=== PATIENT | male | born 1940 | race Caucasian/White ===

== ENCOUNTER 2018-02-16 18:51 | Emergency (ER) | payer MEDICARE, BC ==
--- NOTE | 2018-02-16 20:00 | CT ---
CT OF BRAIN WITHOUT CONTRAST: 02/16/18 COMPARISON: 07/28/12 HISTORY: High blood pressure and right temporal headache. TECHNIQUE: Multiple contiguous axial images were obtained in a CT of the brain without contrast. FINDINGS: There are few scattered hypodensities in the subcortical and periventricular white matter, likely sec ondary to small vessel ischemic disease. There is no evidence of hydrocephalus, intracranial hemorrha ge, or extra-axial fluid collection. The calvarium and overlying soft tissues are unremarkable. The visualized paranasal sinuses and masto id air cells are well aerated. IMPRESSION: No evidence of acute intracranial abnormality. POS: [facility]
[2018-02-16 20:02] LABS: #Basophils 0.1 thou/uL (0.0-0.2); #Eosinphils 0.4 thou/uL (0.0-0.7); #Lymphocytes 2.2 thou/uL (1.20-3.40); #Monocytes 0.7 thou/uL (0.11-0.59); %Basophils 1.1 % (0.0-1.0); %Eosinophils 4.6 % (0.0-10.0); %Lymphocytes 26.2 % (21.0-51.0); %Monocytes 8.5 % (0.0-10.0); %Neutrophils 59.6 % (42.0-75.0); Hemoglobin 13.5 g/dL (14.0-18.0); INR-International Normal Ratio 1.1; Mean Corpuscular HGB CONC 33.6 g/dL (32.0-36.0); Mean Corpuscular Hemoglobin 27.5 pg (27.0-31.0); Mean Platelet Volume 10.8 fL (7.4-10.4); PTT 38.5 SEC (22.9-36.1); Platelet Count 179 thou/uL (130-400); Prothrombin Time 13.8 SEC (12.0-14.7); RBC Distribution Width 13.1 % (11.5-14.5); Red Blood Cell (RBC) Count 4.91 mill/uL (4.70-6.10); White Blood Cell (WBC) Count 8.3 thou/uL (4.8-10.8)
[2018-02-16 20:07] LABS: ALT (SGPT) 9 U/L (8-55); AST (SGOT) 20 U/L (5-34); Alkaline Phosphatase 105 U/L (40-150); Anion Gap 16 mmol/L (10-20); BUN (Urea Nitrogen) 27 mg/dL (8.4-25.7); Bilirubin, Total 0.4 mg/dL (0.2-1.2); Calc. Creatinine Clearance 0 mL/min (70-130); Carbon Dioxide 19 mmol/L (23-31); Chloride 106 mmol/L (98-107); Estimated GFR-MDRD 42; Glucose 99 mg/dL (83-110); Potassium 4.4 mmol/L (3.5-5.1); Sodium 137 mmol/L (136-145)
[2018-02-16 20:11] LABS: Bilirubin Negative (Negative); Blood, Urine Trace (Negative); Clarity Clear (Clear); Glucose, Urine (Dipstick) Negative (Negative); Leukocyte Negative (Negative); Nitrite Negative (Negative); Protein, Urine (Dipstick) Negative (Neg-Trace); Urobilinogen 0.2 mg/dL (0.2-1.0); pH, Urine 5.5 (5.0-9.0)
[2018-02-16 20:12] LABS: Specific Gravity, Urine 1.008 (1.002-1.036)
[2018-02-16 20:18] LABS: Bacteria/HPF Rare-Few HPF (None Seen); RBC/HPF 0-3 HPF (0-3); Squamous Epithelial None Seen HPF (0-3); WBC/HPF None Seen HPF (0-3)
== END 2018-02-16 21:14 | disposition home or self-care (01) ==
LOC: SCSER 18:51
DX: R51 Headache (principal); I10 Essential (primary) hypertension; F41.9 Anxiety disorder, unspecified; F32.9 Major depressive disorder, single episode, unspecified; Z86.718 Personal history of other venous thrombosis and embolism; Z79.899 Other long term (current) drug therapy
CPT/HCPCS: 70450; 80053; 81003; 81015; 84443; 85025; 85610; 85730; 93005

== ENCOUNTER 2018-11-20 18:15 | Emergency (ER) | payer MEDICARE, BC | END 2018-11-20 19:14 | disposition home or self-care (01) | LOC: SCSER 18:15 | DX: S40.812A Abrasion of left upper arm, initial encounter (principal); L29.9 Pruritus, unspecified; I10 Essential (primary) hypertension; F41.9 Anxiety disorder, unspecified; F32.9 Major depressive disorder, single episode, unspecified; Z79.891 Long term (current) use of opiate analgesic; Z79.899 Other long term (current) drug therapy; Z86.718 Personal history of other venous thrombosis and embolism; W22.02XA Walked into lamppost, initial encounter | CPT/HCPCS: 99283 ==

== ENCOUNTER 2018-12-01 21:53 | Observation (INO) | payer MEDICARE, BC ==
[2018-12-01] MEDS ORDERED: Ondansetron PF 4 MG/2 ML Vial ONE (22:18)
[2018-12-01 22:35] LABS: ALT (SGPT) 15 U/L (8-55); AST (SGOT) 14 U/L (5-34); Albumin 4.2 g/dL (3.4-4.8); Alkaline Phosphatase 109 U/L (40-150); Anion Gap 13 mmol/L (10-20); BUN (Urea Nitrogen) 25 mg/dL (8.4-25.7); Bilirubin, Total 0.3 mg/dL (0.2-1.2); Calc. Creatinine Clearance 0 mL/min (70-130); Calcium 9.1 mg/dL (7.8-10.44); Carbon Dioxide 27 mmol/L (23-31); Chloride 106 mmol/L (98-107); Estimated GFR-MDRD 38; Glucose 111 mg/dL (83-110); Lipase 35 U/L (8-78); Potassium 3.7 mmol/L (3.5-5.1); Protein, Total 8.2 g/dL (5.8-8.1); Sodium 142 mmol/L (136-145)
--- NOTE | 2018-12-01 22:45 | CT ---
CT ABDOMEN AND PELVIS WITHOUT CONTRAST 12/01/18 PROVIDED CLINICAL HISTORY: Abdominal pain FINDINGS: Comparison is made with a study dated 06/16/15. The visualized lung bases are free of significant opacity. The solid abdominal organs are suboptimally evaluated in the absence of IV contrast material but demo nstrate an unremarkable unenhanced CT appearance. Gallstones are seen within a nondilated gallbladder. There are several loops of mildly ectatic fluid filled small bowel within the central mid abdomen ant eriorly, nonspecific. There are no findings specific for bowel obstructive. Vascular calcification is noted involving the abdominal aorta and its branches. The appendix appears normal. Small fat containing inguinal hernias are seen. The osseous structures demonstrate no concerning osteoblastic or osteolytic lesion. IMPRESSION: No definite evidence for an acute process. POS: [facility]
[2018-12-01] MEDS ORDERED: Fentanyl 100 MCG/2 ML VIAL ONE (22:58)
[2018-12-01 23:05] LABS: #Basophils 0.1 thou/uL (0.0-0.2); #Eosinphils 0.3 thou/uL (0.0-0.7); #Lymphocytes 1.9 thou/uL (1.20-3.40); #Monocytes 0.6 thou/uL (0.11-0.59); #Neutrophils 3.8 thou/uL (1.40-6.50); %Basophils 0.9 % (0.0-1.0); %Lymphocytes 28.6 % (21.0-51.0); %Monocytes 9.2 % (0.0-10.0); %Neutrophils 57.3 % (42.0-75.0); Mean Corpuscular HGB CONC 33.6 g/dL (32.0-36.0); Mean Corpuscular Hemoglobin 29.4 pg (27.0-31.0); Mean Corpuscular Volume 87.4 fL (78.0-98.0); Platelet Count 152 thou/uL (130-400); RBC Distribution Width 13.1 % (11.5-14.5); Red Blood Cell (RBC) Count 4.78 mill/uL (4.70-6.10); White Blood Cell (WBC) Count 6.7 thou/uL (4.8-10.8)
--- NOTE | 2018-12-01 23:56 | ULT ---
RIGHT UPPER QUADRANT ULTRASOUND: 12/01/18 PROVIDED CLINICAL HISTORY: Abdominal pain. FINDINGS: The pancreas is obscured by overlying bowel content. The liver demonstrates no mass or intrahepatic b iliary ductal dilatation. Shadowing emanating from the gallbladder fossa is compatible with gallstone s seen on recent CT examination. Gallbladder wall thickness is approximately 4 mm. No pericholecystic fluid is evident. The quality assistant describes a positive sonographic Dorsey's sign. Common duct is not dilated. Right kidney demonstrates no hydronephrosis or mass. IMPRESSION: Cholelithiasis with gallbladder wall thickening and reported sonographic Dorsey's sign. Correlate wit h concerns for acute cholecystitis. POS: [facility]
[2018-12-02] MEDS ORDERED: Fentanyl 100 MCG/2 ML VIAL ONE ×5 (00:09→09:24)
[2018-12-02] MEDS ORDERED: Levofloxacin 500 mg/D5W 100 ml Premix Bag ONE (00:52)
[2018-12-02] MEDS ORDERED: Ondansetron PF 4 MG/2 ML Vial ONE ×2 (02:34→14:36)
[2018-12-02] MEDS ORDERED: Promethazine HCl 25 MG/ML VIAL ONE (04:12)
[2018-12-02] MEDS ORDERED: Scopolamine 1.5 mg/72 hour Patch ONE (08:14)
[2018-12-02] MEDS ORDERED: Ketorolac Tromethamine 30 MG/ML VIAL ONE (08:14)
[2018-12-02] MEDS ORDERED: Albumin 5% 500 ML ONE (09:24)
--- NOTE | 2018-12-02 09:32 | HP ---
HISTORY OF PRESENT ILLNESS: Gabo Floyd has had epigastric right upper quadrant pain symptoms for several weeks, on this occasion it became so severe, presented to the emergency room. He had abdominal and pelvic CT scan that was essentially unremarkable. This was done without contrast due to his chronic kidney disease for which Dr. Herring follows him for. He did have gallstones. He did undergo an ultrasound of the abdomen revealing sonographic positive Dorsey sign, gallstones, normal bile duct caliber 4 mm. He had liver function tests that were normal. Lipase was normal. Hemoglobin 14 and white count 6.7. ALLERGIES: NONE, ALTHOUGH, MORPHINE CAUSES ADVERSE AFFECT, BUT HE IS NOT ALLERGIC TO IT. SOCIAL HISTORY: Tobacco, none. Alcohol, rarely socially. MEDICATIONS: 1. Sertraline 25 mg at bedtime. 2. Hydrocodone p.r.n. 3. Carvedilol 12.5 mg p.o. b.i.d. The patient in 2008 had colonoscopy and 2 days later, found to have a perforation undergoing colon resection repair and colostomy and subsequently a colostomy reversal. He, on 06/16/2015, had a laparoscopic adhesiolysis, laparoscopic reduction of incarcerated incisional hernia, left lower quadrant, laparoscopic mesh repair, Ventralight 6 x 8 inches (15 x 20 cm), obliquely oriented to cover the left lower quadrant defect at the old colostomy site. He had some upper midline incisional hernias, multiple small for which the mesh also used to cover these. The patient had a problem with his left leg and infection requiring debridement open wound and I performed skin graft in 2007. Dr. Jones performed a colonoscopy May 30, 2012 and December 16, 2011. The patient had a right groin mass. Dr. Chapman excised with a complex wound closure on July 11, 2009. The patient underwent colostomy reversal by Dr. Chapman. After February 24, 2009, sigmoid colon perforation with fecal peritonitis, abdominal washout, laparotomy, sigmoid colectomy with end colostomy. On October 10, 2008, debridement of left leg wound with skin graft after serial debridements previously. Kidney biopsy in August 2008. Temporary dialysis in the past. PAST MEDICAL HISTORY: 1. Chronic kidney disease followed by Dr. Herring. 2. Minimal disease, focal glomerulosclerosis, on steroids followed by Dr. Herring. 3. Hypertension. 4. History of prostate cancer, radiation therapy. 5. 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 6. Type 2 diabetes mellitus. 7. Chronic steroid dependency. 8. History of upper extremity DVT. 9. History of right PICC line. PHYSICAL EXAMINATION: VITAL SIGNS: Weight 81 kg, blood pressure 180/90, heart rate 83, respiratory rate 22, and temperature 97.9 degrees. HEAD, EARS, EYES, NOSE, AND THROAT: Unremarkable. LUNGS: Clear to auscultation. CARDIAC: Regular rate and rhythm without murmur or gallop. ABDOMEN: Soft and tenderness in right upper quadrant and epigastrium with guarding. Positive Dorsey sign. EXTREMITIES: Unremarkable. Chronic venous stasis changes. SKIN: Without jaundice. Sclerae without icterus. LABORATORY DATA: White count 6.7, hemoglobin 14. Sodium 142, BUN 25, creatinine 1.75, and GFR 38. Liver function tests normal. Lipase normal. ASSESSMENT AND PLAN: 1. Acute cholecystitis with cholelithiasis. Recommend laparoscopic video cholecystectomy. Risks of infection, bleeding, visceral and biliary injury, open procedure discussed. Questions answered. He consents. 2. Chronic kidney disease. This is a stable kidney function as noted above. Continue hydration and observe. 3. History of glomerulosclerosis. He has been on steroids in the past, currently not. 4. History of incisional hernia repair, laparoscopic with mesh. Job ID: [id number]
[2018-12-02] MEDS ORDERED: Bupivacaine HCl 0.5%/Epinephrine 1:200,000/PF 30 ml Vial ONE (09:47)
[2018-12-02] MEDS ORDERED: SUGAMMADEX SODIUM 200 MG/2 ML VIAL ONE (10:54)
--- NOTE | 2018-12-02 14:24 | OP ---
DATE OF PROCEDURE: 12/02/2018 PREOPERATIVE DIAGNOSES: Acute cholecystitis, cholelithiasis, chronic cholecystitis, and cholelithiasis. POSTOPERATIVE DIAGNOSES: Acute cholecystitis, cholelithiasis, chronic cholecystitis, cholelithiasis, and adhesions from prior surgery. PROCEDURE PERFORMED: Laparoscopic video cholecystectomy. ANESTHESIA: General, local 0.5% Marcaine with epinephrine 30 mL. FINDINGS: Periumbilical adhesions from prior operations, lower abdominal incision made in the right lower quadrant for the 5 port with laparoscope. DESCRIPTION OF PROCEDURE: The patient was taken to the operating room, where under general anesthesia, abdomen was clipped of hair, prepared with ChloraPrep, and draped in routine fashion. Local anesthetic was infiltrated into the skin and subcutaneous tissue about the operative sites. Right midclavicular and subcostal incision made. Pneumoperitoneum to 15 mmHg obtained with a Veress needle, replaced with a 5 port, and the laparoscope inserted. The adhesions from prior operation, periumbilical with small bowel and omentum adherent to the periumbilical area and adhesion free area in the right lower quadrant. Skin and subcutaneous tissues were localized with local anesthetic. Incision made and 5 port placed with the laparoscope moved to this port. Right subxiphoid incision was made and 11 port placed. Right lateral subcostal incision made and 5 port placed. Liver appeared to be normal. Gallbladder and fundus grasped at the cephalad, infundibulum grasped at the lateral cystic artery and dissected free. Critical view obtained. Clips doubly applied, cystic artery and duct, which were divided, and gallbladder dissected free from liver bed obtaining good hemostasis. Multiple stones and gallbladder removed, submitted to Pathology. Hemostasis assured with the cautery. Subxiphoid fascia approximated with 0 Vicryl UR needle. Irrigant and pneumoperitoneum evacuated. All instruments were removed, and all skin incisions were approximated with interrupted subdermal 4-0 Monocryl and Aten-glue applied. Job ID: [id number]
[2018-12-02] MEDS ORDERED: Rocuronium Bromide 10 MG/ML (10ML VIAL) ONE (14:36)
[2018-12-02] MEDS ORDERED: PROPOFOL 200 MG/20 ML VIAL ONE (14:36)
[2018-12-02] MEDS ORDERED: Lidocaine 1% PF 5 ML VIAL ONE (14:36)
[2018-12-02] MEDS ORDERED: Metoclopramide HCl 10 MG/2 ML VIAL ONE (14:36)
[2018-12-02] MEDS ORDERED: PHENYLEPHRINE-NS 100 MCG/ML 10 ML SYRINGE ONE (14:36)
[2018-12-02] MEDS ORDERED: Succinylcholine Chloride 20 MG/ML 10 ml SYRINGE FS ONE (14:36)
[2018-12-02] MEDS ORDERED: Glycopyrrolate 0.2 MG/ML 5 ML SYRINGE ONE ×2 (14:36)
[2018-12-02] MEDS ORDERED: Dexamethasone 20 MG/5 ML VIAL ONE (14:36)
== END 2018-12-02 13:55 | disposition home or self-care (01) ==
LOC: SCSER 21:53 → ERHOLD 12-02 01:00
PROVIDERS: ADMIT Specialist; ATTEND Specialist
PROC: 0FT44ZZ Resection of Gallbladder, Percutaneous Endoscopic Approach (ICD-10-PCS; principal; 2018-12-02)
DX: K80.12 Calculus of gallbladder with acute and chronic cholecystitis without obstruction (principal); I12.9 Hypertensive chronic kidney disease with stage 1 through stage 4 chronic kidney disease, or unspecified chronic kidney disease; E11.22 Type 2 diabetes mellitus with diabetic chronic kidney disease; N18.9 Chronic kidney disease, unspecified; Z85.46 Personal history of malignant neoplasm of prostate; Z79.899 Other long term (current) drug therapy; Z90.49 Acquired absence of other specified parts of digestive tract; Z98.890 Other specified postprocedural states
CPT/HCPCS: 47562; 74176; 76705; 80053; 83605; 83690; 84484; 85025; 88304; 93005; 96361; 96365; 96372; 96375; 96376; 99285; P9045; J0131; J0670; J1100; J1885; J1956; J2001; J2405; J2550; J2704; J2765; J3010

== ENCOUNTER 2019-04-10 20:31 | Emergency (ER) | payer MEDICARE, BC ==
[2019-04-10 21:12] LABS: #Basophils 0.1 thou/uL (0.0-0.2); #Eosinphils 0.4 thou/uL (0.0-0.7); #Lymphocytes 1.9 thou/uL (1.20-3.40); #Monocytes 0.7 thou/uL (0.11-0.59); #Neutrophils 3.1 thou/uL (1.40-6.50); %Basophils 1.1 % (0.0-1.0); %Eosinophils 6.2 % (0.0-10.0); %Lymphocytes 30.8 % (21.0-51.0); %Monocytes 10.8 % (0.0-10.0); %Neutrophils 51.1 % (42.0-75.0); Hemoglobin 11.8 g/dL (14.0-18.0); Mean Corpuscular HGB CONC 34.3 g/dL (32.0-36.0); Mean Corpuscular Hemoglobin 28.7 pg (27.0-31.0); Mean Corpuscular Volume 83.7 fL (78.0-98.0); Mean Platelet Volume 7.6 fL (7.4-10.4); Platelet Count 177 thou/uL (130-400); RBC Distribution Width 12.7 % (11.5-14.5)
[2019-04-10 21:25] LABS: ALT (SGPT) 11 U/L (8-55); AST (SGOT) 13 U/L (5-34); Alkaline Phosphatase 99 U/L (40-150); Anion Gap 14 mmol/L (10-20); BUN (Urea Nitrogen) 29 mg/dL (8.4-25.7); Bilirubin, Total 0.4 mg/dL (0.2-1.2); Calc. Creatinine Clearance 0 mL/min (70-130); Calcium 9.2 mg/dL (7.8-10.44); Carbon Dioxide 23 mmol/L (23-31); Chloride 107 mmol/L (98-107); Estimated GFR-MDRD 32; Globulin 3.5 g/dL (2.4-3.5); Glucose 112 mg/dL (83-110); Potassium 4.1 mmol/L (3.5-5.1); Protein, Total 7.5 g/dL (5.8-8.1); Sodium 140 mmol/L (136-145)
--- NOTE | 2019-04-10 21:47 | RAD ---
EXAM: Two views chest PROVIDED CLINICAL HISTORY: Chest pain. COMPARISON: 06/16/2015 FINDINGS: Cardiac silhouette and pulmonary vasculature are within normal limits. The lungs are clear. The osse ous structures have a normal appearance. Vascular calcifications are seen in the thoracic aorta. Nasogastric tube is no longer visualized, and there is been improved aeration at the left lung base. No other interval change. IMPRESSION: No acute cardiopulmonary process.
--- NOTE | 2019-04-10 23:00 | ULT ---
EXAM: Right lower extremity venous Doppler HISTORY: Right lower extremity swelling, redness, and pain. FINDINGS: Grayscale, color-flow, Doppler evaluation, spectral analysis of the right lower extremity venous stru ctures is performed with 2-D imaging. The right common femoral, superficial femoral, popliteal, posterior tibial, proximal greater saphenous and profunda femoral veins are imaged. There is normal luminal compressibility, flow, and augmentation the visualized deep venous structures of the right lower extremity. IMPRESSION: No evidence of a deep vein thrombosis in the visualized deep venous structures right lower extremity.
== END 2019-04-10 22:38 | disposition home or self-care (01) ==
LOC: SCSER 20:31
DX: M79.89 Other specified soft tissue disorders (principal); I10 Essential (primary) hypertension; F41.9 Anxiety disorder, unspecified; F32.9 Major depressive disorder, single episode, unspecified; Z86.718 Personal history of other venous thrombosis and embolism; Z79.899 Other long term (current) drug therapy
CPT/HCPCS: 36415; 71046; 80053; 83880; 84484; 85025; 93005

== ENCOUNTER 2019-09-20 23:46 | Emergency (ER) | payer MEDICARE, BC ==
[2019-09-21] MEDS ORDERED: Ondansetron PF 4 MG/2 ML Vial ONE (00:22)
[2019-09-21 00:25] LABS: #Basophils 0.1 thou/uL (0.0-0.2); #Eosinphils 0.4 thou/uL (0.0-0.7); #Lymphocytes 2.1 thou/uL (1.20-3.40); #Monocytes 0.7 thou/uL (0.11-0.59); #Neutrophils 6.1 thou/uL (1.40-6.50); %Basophils 0.6 % (0.0-1.0); %Eosinophils 4.1 % (0.0-10.0); %Lymphocytes 22.5 % (21.0-51.0); %Monocytes 7.2 % (0.0-10.0); %Neutrophils 65.5 % (42.0-75.0); Hemoglobin 13.8 g/dL (14.0-18.0); Mean Corpuscular HGB CONC 33.3 g/dL (32.0-36.0); Mean Corpuscular Hemoglobin 27.4 pg (27.0-31.0); Mean Corpuscular Volume 82.3 fL (78.0-98.0); Mean Platelet Volume 9.3 fL (7.4-10.4); Platelet Count 168 thou/uL (130-400); RBC Distribution Width 13.3 % (11.5-14.5); Red Blood Cell (RBC) Count 5.03 mill/uL (4.70-6.10); White Blood Cell (WBC) Count 9.3 thou/uL (4.8-10.8)
[2019-09-21] MEDS ORDERED: Fentanyl 100 MCG/2 ML VIAL ONE ×3 (00:29→04:07)
[2019-09-21 00:39] LABS: ALT (SGPT) 14 U/L (8-55); AST (SGOT) 16 U/L (5-34); Albumin 4.2 g/dL (3.4-4.8); Alkaline Phosphatase 99 U/L (40-110); Anion Gap 15 mmol/L (10-20); BUN (Urea Nitrogen) 27 mg/dL (8.4-25.7); Bilirubin, Total 0.4 mg/dL (0.2-1.2); CK (CPK) 56 U/L (30-200); Calc. Creatinine Clearance 0 mL/min (70-130); Calcium 9.4 mg/dL (7.8-10.44); Carbon Dioxide 25 mmol/L (23-31); Chloride 106 mmol/L (98-107); Estimated GFR-MDRD 42; Globulin 3.7 g/dL (2.4-3.5); Glucose 107 mg/dL (83-110); Lipase 21 U/L (8-78); Potassium 3.6 mmol/L (3.5-5.1); Protein, Total 7.9 g/dL (5.8-8.1); Sodium 142 mmol/L (136-145)
[2019-09-21 02:38] LABS: Bilirubin Negative (Negative); Blood, Urine Small (Negative); Clarity Clear (Clear); Glucose, Urine (Dipstick) Negative (Negative); Leukocyte Negative (Negative); Nitrite Negative (Negative); Protein, Urine (Dipstick) 100 mg/dL (Neg-Trace); Urobilinogen 0.2 mg/dL (Less than 2)
[2019-09-21 02:42] LABS: Bacteria/HPF None Seen HPF (None Seen); RBC/HPF 0-3 HPF (0-3); Squamous Epithelial 0-3 HPF (0-3); WBC/HPF 0-3 HPF (0-3)
--- NOTE | 2019-09-21 08:01 | CT ---
PRELIMINARY REPORT/[facility]/EMERGENCY AFTER HOURS PROCEDURE PROCEDURE INFORMATION: Exam: CT Abdomen And Pelvis With Contrast Exam date and time: 09/21/2019 2:22 AM Clinical history: 79 years old, male; Patient HX: Patient presents for evaluation of abdominal pain. Historian history provided by patient, reports mid abdominal pain onset around 5p today. 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 No n/v. Pain is intermittent, comes in waves. HX of prior ruptured bowel with repair. TECHNIQUE: Imaging protocol: Computed tomography of the abdomen and pelvis with intravenous contrast. COMPARISON: No relevant prior studies available. FINDINGS: Liver: Normal. Gallbladder and bile ducts: Gallbladder is surgically absent. Pancreas: Normal. Spleen: Normal. Adrenals: Normal. Kidneys and ureters: Simple right renal cysts. Stomach and bowel: Scattered colonic diverticulosis. Small amount of fluid and fat stranding adjacent to nondilated small bowel within the anterior abdomen. No bowel wall thickening. Appendix: No evidence of appendicitis. Intraperitoneal space: Unremarkable. No free air. No significant fluid collection. Vasculature: Phleboliths in the pelvis. Atherosclerotic disease of the abdominal aorta and iliac arteries. Lymph nodes: Unremarkable. No enlarged lymph nodes. Bladder: Unremarkable as visualized. Reproductive: Unremarkable as visualized. Bones/joints: Multilevel thoracolumbar spine degenerative changes. Bilateral L5 pars defects. Soft tissues: Small bilateral fat-containing inguinal hernias. IMPRESSION: Small amount of fluid and fat stranding adjacent to nondilated small bowel within the anterior abdomen. No bowel wall thickening. Findings are nonspecific, but could represent localized venous congestion or sequelae of prior infection/inflammation. Thank you for allowing us to participate in the care of your patient. Dictated and Authenticated by: Ren Whitehead MD 09/21/2019 3:53 AM Central Time ([place] & [place]) FINAL REPORT EXAM: CT ABDOMEN AND PELVIS HISTORY: Abdominal pain. COMPARISON: 06/16/2015 Procedure: Multiple contiguous axial images were obtained and a CT of the abdomen and pelvis with IV contrast. C oronal reformats were performed. FINDINGS: Lower Chest: Patchy interstitial and alveolar opacities in lung bases. Vessels: Atherosclerosis of the a normal caliber aorta. Heart: Upper normal heart size. No significant pericardial fluid Abdomen: Portal vein:Patent Gallbladder: Surgically absent Liver: within normal limits. Pancreas: within normal limits. Spleen: within normal limits. Adrenals: within normal limits. Kidneys: Symmetric enhancement. No obstructive uropathy. Peritoneum: No ascites or free air. There is a small amount of free fluid in the anterior right abdom inal mesentery. Small amount of anterior abdominal mesenteric fat stranding. Bowel: Limited evaluation due to the lack of oral contrast administration. No evidence of bowel obstr uction. Ileocecal junction is unremarkable. Normal caliber appendix. Scattered fecal material in a nondistended, nondilated colon. Anastomotic suture chain in the sigmoid colon is noted. Mesentery and Retroperitoneum: No enlarged mesenteric or retroperitoneal lymph nodes. Abdominal Wall: within normal limits. Pelvis: Reproductive Organs: Reproductive organs are unremarkable. Pelvis: No mass, lymphadenopathy, free air or free fluid. Bladder: Mild urinary bladder mucosal prominence may be due to inadequate distention. Bones: within normal limits. IMPRESSION: Small amount of fluid and stranding the anterior abdominal mesentery. This report is in agreement with the preliminary report by [facility]. Transcribed Date/Time: 09/21/2019 8:05 AM
== END 2019-09-21 04:00 | disposition home or self-care (01) ==
LOC: SCSER 23:46
DX: R10.9 Unspecified abdominal pain (principal); F41.9 Anxiety disorder, unspecified; F32.9 Major depressive disorder, single episode, unspecified; I10 Essential (primary) hypertension; Z86.718 Personal history of other venous thrombosis and embolism; Z79.899 Other long term (current) drug therapy
CPT/HCPCS: 74177; 80053; 81003; 81015; 82550; 83605; 83690; 84484; 85025; 93005; 96361; 96374; 96375; 96376; J2405; J3010

== ENCOUNTER 2020-08-28 11:15 | Inpatient (IN) | payer MEDICARE, BC ==
[2020-08-28 14:14] LABS: Hemoglobin 10.9 g/dL (14.0-18.0); Mean Corpuscular HGB CONC 32.7 g/dL (32.0-36.0); Mean Corpuscular Hemoglobin 28.9 pg (27.0-31.0); Mean Corpuscular Volume 88.2 fL (78.0-98.0); Mean Platelet Volume 10.8 fL (7.4-10.4); Platelet Count 121 thou/uL (130-400); RBC Distribution Width 12.8 % (11.5-14.5); Red Blood Cell (RBC) Count 3.76 mill/uL (4.70-6.10); White Blood Cell (WBC) Count 5.2 thou/uL (4.8-10.8)
[2020-08-28 15:02] LABS: Anion Gap 14 mmol/L (10-20); BUN (Urea Nitrogen) 33 mg/dL (8.4-25.7); Calc. Creatinine Clearance 0 mL/min (70-130); Calcium 8.5 mg/dL (7.8-10.44); Carbon Dioxide 22 mmol/L (23-31); Chloride 107 mmol/L (98-107); Estimated GFR-MDRD 27; Glucose 90 mg/dL (83-110); Potassium 4.4 mmol/L (3.5-5.1); Sodium 139 mmol/L (136-145)
[2020-08-29 11:54] LABS: SARS-CoV-2 MS2 Positive; SARS-CoV-2 N Gene Negative; SARS-CoV-2 S Gene Negative; SARS-CoV-2 by NAA Not Detected (NotDetected); SARS-CoV-2 orf1ab Negative
[2020-08-31] MEDS ORDERED: Albumin 5% 0 ML ONE (06:32)
[2020-08-31] MEDS ORDERED: Heparin 10,000 UNITS/1 ML VIAL 30,000 UNITS in Sodium Chloride 0.9% 1,000 ML FS SCH (06:45)
[2020-08-31] MEDS ORDERED: Fentanyl 100 MCG/2 ML VIAL ONE (07:05)
[2020-08-31] MEDS ORDERED: Midazolam HCl 2 mg/2 ml Vial ONE (07:05)
[2020-08-31] MEDS ORDERED: Fentanyl 250 MCG/5 ML VIAL ONE (07:29)
[2020-08-31] MEDS ORDERED: ePHEDrine 50 MG/ML VIAL ONE (08:39)
[2020-08-31] MEDS ORDERED: Protamine Sulfate 50 MG/5 ML VIAL ONE (09:48)
[2020-08-31] MEDS ORDERED: SUGAMMADEX SODIUM 200 MG/2 ML VIAL ONE (10:01)
[2020-08-31] MEDS ORDERED: Protamine Sulfate 250 MG/25 ML VIAL ONE ×2 (10:03→10:46)
[2020-08-31] MEDS ORDERED: Heparin 30,000 units/30 ml VIAL ONE (10:46)
[2020-08-31] MEDS ORDERED: Labetalol HCl 100 MG/20 ML VIAL ONE (10:46)
[2020-08-31] MEDS ORDERED: Ondansetron PF 4 MG/2 ML Vial ONE (10:46)
[2020-08-31] MEDS ORDERED: Heparin 5,000 UNITS/ML VIAL ONE (10:46)
[2020-08-31] MEDS ORDERED: Glycopyrrolate 0.2 MG/ML 5 ML SYRINGE ONE (10:46)
[2020-08-31] MEDS ORDERED: EPHEDRINE 25 MG/5 ML SYRINGE ONE (10:46)
[2020-08-31] MEDS ORDERED: PROPOFOL 200 MG/20 ML VIAL ONE (10:46)
[2020-08-31] MEDS ORDERED: PHENYLEPHRINE-NS 100 MCG/ML 10 ML SYRINGE ONE (10:46)
[2020-08-31] MEDS ORDERED: Papaverine 60 MG/2 ML VIAL ONE (10:46)
[2020-08-31] MEDS ORDERED: Dexamethasone 20 MG/5 ML VIAL ONE (10:46)
[2020-08-31] MEDS ORDERED: Thrombin 5000 UNITS/5 ML VIAL ONE (10:46)
[2020-08-31] MEDS ORDERED: Atropine Sulfate 0.4 mg/1 ml Vial ONE (10:46)
[2020-08-31] MEDS ORDERED: Aminocaproic Acid 5 GM/20 ML VIAL ONE (10:46)
[2020-08-31] MEDS ORDERED: Rocuronium Bromide 10 MG/ML (10ML VIAL) ONE (10:46)
[2020-08-31] MEDS ORDERED: Calcium Chloride 1 GM/10 ML Abboject SYRINGE ONE (10:46)
[2020-08-31] MEDS ORDERED: niCARdipine 25 MG/10 ML VIAL ONE (10:51)
--- NOTE | 2020-08-31 10:59 | OP ---
DATE OF PROCEDURE: 08/31/2020 PREOPERATIVE DIAGNOSIS: Coronary artery disease. PROCEDURE PERFORMED: Coronary artery bypass graft x2, off-pump, RICHARD good quality to a 2-mm LAD, saphenous vein good quality to a 1.5 to 2 mm diagonal. HAIR WORKER: Scott Delacruz MD TRANSFUSION: None. ESTIMATED BLOOD LOSS: 300. DESCRIPTION OF PROCEDURE: After adequate anesthesia had been obtained, then Dr. Delacruz did a saphenous vein harvest of the left greater saphenous vein while I performed a median sternotomy. Left internal mammary artery was harvested, entering the left pleura. After heparinization, the mammary was divided distally and passed posterior to the thymus gland and then pericardium was incised. Laparotomy pads placed behind the heart after 15,000 units of heparin and then the Octopus stabilizer was used on the LAD, proximal control with a [place]eb tape and the vessel was opened, and using the Wendy blower, the anastomosis was completed. Following completion of this, similar procedure was performed on the diagonal with a vein graft. Following this, the pressure was dropped to about 75 to 80, and a partial occluding clamp placed on the aorta, which was rather thick walled. Proximal anastomosis was then completed with a running 6-0 Prolene suture. Following completion of this, proximal and distal anastomoses were hemostatic. Mediastinal and left pleural drains were placed while protamine was given systemically. The sternum was then reapproximated with #7 interrupted wire using vancomycin paste on the sternal edges, platelet-rich blood, and platelet-poor plasma. Subcutaneous tissue and skin were closed in layers. Job ID: [id number]
[2020-08-31 12:07] LABS: Actual Bicarbonate (HCO3a) 18.4 mEq/L (22-28); Base Excess (BEa) -7.1 mEq/L (-2.0 to +3.0); CO2 Tension 36.7 mmHg (35.0-45.0); Calcium, Ionized (arterial) 1.02 mmol/L (1.12-1.30); Carboxyhemoglobin (COHb) 0.1 gm% (0.0-3.0); Hemoglobin (Hb) 8.9 g/dL (14.0-18.0); O2 Tension (PaO2), arterial 91.6 mmHg (> 70.0); Potassium - ABG Lab 3.89 mmol/L (3.70-5.30); pH, Arterial 7.32 (7.35-7.45)
[2020-08-31] MEDS ORDERED: Nitroglycerin 50 MG/250 ML BOT 250 ML ONE (12:14)
[2020-08-31] MEDS: Nitroglycerin 50 MG/250 ML BOT 250 ML IVPB PRN ×2 (12:15→20:24)
[2020-08-31] MEDS ORDERED: Acetaminophen 325 MG TAB PO PRN (12:18)
[2020-08-31] MEDS ORDERED: DOPamine 400 MG/D5W 250 ML 250 ML IVPB PRN (12:18)
[2020-08-31] MEDS ORDERED: Morphine 2 MG/ML VIAL SLOW IVP PRN ×2 (12:18→13:45)
[2020-08-31] MEDS ORDERED: Fentanyl 100 MCG/2 ML VIAL SLOW IVP PRN ×2 (12:18)
[2020-08-31] MEDS ORDERED: Bisacodyl 10 MG SUPP PR PRN (12:18)
[2020-08-31] MEDS ORDERED: Norepinephrine 8 MG/0.9% NS 250 ML IVPB PRN (12:18)
[2020-08-31] MEDS ORDERED: hydrALAZINE 20 MG/ML VIAL SLOW IVP PRN (12:18)
[2020-08-31] MEDS ORDERED: Guaifenesin DM 100-10/5 ML UDCUP PO PRN (12:18)
[2020-08-31] MEDS ORDERED: Ondansetron PF 4 MG/2 ML Vial IVP PRN (12:18)
[2020-08-31] MEDS ORDERED: Post-Op Insulin Drip Protocol IVPB ONE (12:18)
[2020-08-31] MEDS ORDERED: Bisacodyl 5 MG TAB PO PRN (12:18)
[2020-08-31] MEDS ORDERED: Promethazine HCl 25 MG/ML VIAL IM PRN (12:18)
[2020-08-31] MEDS ORDERED: Hetastarch 6% 500 ML 500 ML IVPB PRN (12:18)
[2020-08-31] MEDS ORDERED: niCARdipine 25 MG in Sodium Chloride 0.9% 250 ML 250 ML IVPB PRN (12:18)
[2020-08-31] MEDS ORDERED: Mag-Al 1200 mg/1200 mg/30 ML UDCUP PO PRN (12:18)
--- NOTE | 2020-08-31 12:28 | RAD ---
Exam: Chest one view HISTORY:Status post open heart surgery. Comparison: 07/24/2020. FINDINGS: Lines and tubes: There are sternotomy wires, endotracheal tube at the level of the ayse, mediastina l drainage catheter and right-sided subclavian vascular catheter. Cardiac silhouette: Normal. Interval sternotomy wires. Aorta: Unremarkable. Pulmonary vessels: Normal. Costophrenic angles: Clear. Lungs: Patchy opacities may represent atelectasis. Pneumothorax: None. Osseous abnormalities: None. IMPRESSION: 1. Findings compatible with recent open heart surgery. Endotracheal tube at the level of ayse. Find ings conveyed to patient's nurse to consider repositioning. 2. Patchy opacities in the lung parenchyma may represent atelectasis. Transcribed Date/Time: 08/31/2020 12:36 PM
[2020-08-31 12:29] LABS: #Eosinphils 0.3 thou/uL (0.0-0.7); #Monocytes 0.5 thou/uL (0.11-0.59); #Neutrophils 5.9 thou/uL (1.40-6.50); %Basophils 0.4 % (0.0-1.0); %Eosinophils 3.4 % (0.0-10.0); %Lymphocytes 13.5 % (21.0-51.0); %Neutrophils 76.8 % (42.0-75.0); Hemoglobin 8.6 g/dL (14.0-18.0); Mean Corpuscular HGB CONC 33.8 g/dL (32.0-36.0); Mean Corpuscular Hemoglobin 29.2 pg (27.0-31.0); Mean Corpuscular Volume 86.3 fL (78.0-98.0); Mean Platelet Volume 9.5 fL (7.4-10.4); Platelet Count 138 thou/uL (130-400); Red Blood Cell (RBC) Count 2.93 mill/uL (4.70-6.10); White Blood Cell (WBC) Count 7.6 thou/uL (4.8-10.8)
[2020-08-31 12:31] LABS: ALV-art Gradient 147.725 mmHg (0-20); Puncture Site ALINE
[2020-08-31 12:38] LABS: INR-International Normal Ratio 1.4; PTT 45.2 sec (22.9-36.1); Prothrombin Time 17.6 sec (12.0-14.7)
[2020-08-31] MEDS ORDERED: HUMULIN R 100 UNITS in Sodium Chloride 0.9% 100 ML IVPB SCH (12:45)
[2020-08-31] MEDS ORDERED: Dextrose 50% Abboject 50 ML SYRINGE SLOW IVP PRN (12:45)
[2020-08-31] MEDS ORDERED: Dextrose 5% in Water 1,000 ML IV PRN (12:45)
[2020-08-31] MEDS: Insulin Regular 300 UNITS/3 ML VIAL SC PRN ×2 (12:46→18:52)
[2020-08-31] MEDS: Sodium Chloride 0.9% 1,000 ML IV SCH (12:47)
[2020-08-31 13:07] LABS: Anion Gap 10 mmol/L (10-20); BUN (Urea Nitrogen) 30 mg/dL (8.4-25.7); Calc. Creatinine Clearance 36 mL/min (70-130); Calcium 7.1 mg/dL (7.8-10.44); Carbon Dioxide 20 mmol/L (23-31); Chloride 114 mmol/L (98-107); Estimated GFR-MDRD 35; Glucose 148 mg/dL (83-110); Sodium 140 mmol/L (136-145)
[2020-08-31] MEDS ORDERED: Propofol 1,000 MG/100 ML VIAL IV ONE (13:08)
[2020-08-31] MEDS ORDERED: Propofol 1,000 MG/100 ML VIAL IV PRN (13:45)
[2020-08-31] MEDS ORDERED: Propofol BOLUS 1,000 MG/100 ML VIAL IV PRN (13:45)
[2020-08-31] MEDS ORDERED: Lorazepam 2 MG/ML VIAL SLOW IVP PRN (13:45)
[2020-08-31] MEDS ORDERED: DISCONTINUE PREVIOUS NARCOTIC PAIN MEDICATIONS AND BENZODIAZEPINES FS SCH (13:45)
[2020-08-31] MEDS ORDERED: Fentanyl BOLUS 250 ML IVPB PRN (13:45)
[2020-08-31] MEDS ORDERED: fentaNYL Citrate/PF 2,000 MCG in Sodium Chloride 0.9% 60 ML IV SCH (13:45)
[2020-08-31] MEDS: CEFAZOLIN 2 GM in Premix Bag 1 BAG IVPB SCH (16:00)
[2020-08-31 17:27] LABS: Actual Bicarbonate (HCO3a) 17.3 mEq/L (22-28); Base Excess (BEa) -5.6 mEq/L (-2.0 to +3.0); Calcium, Ionized (arterial) 0.98 mmol/L (1.12-1.30); Carboxyhemoglobin (COHb) 0.3 gm% (0.0-3.0); Hemoglobin (Hb) 9.8 g/dL (14.0-18.0); O2 Tension (PaO2), arterial 82.1 mmHg (> 70.0); Potassium - ABG Lab 3.39 mmol/L (3.70-5.30); pH, Arterial 7.44 (7.35-7.45)
[2020-08-31 17:28] LABS: Puncture Site LINE
[2020-08-31] MEDS ORDERED: HYDROcodone/Acetaminophen 10/325 mg Tablet PO SCH (18:00)
[2020-08-31] MEDS ORDERED: HYDROcodone/Acetaminophen 10/325 mg Tablet ONE (18:04)
[2020-08-31 18:08] LABS: Hemoglobin 9.3 g/dL (14.0-18.0)
[2020-08-31 18:16] LABS: Glucose 164 mg/dL (83-110); Potassium 3.5 mmol/L (3.5-5.1)
[2020-08-31] MEDS: Potassium Chloride 20 MEQ/100 ML PREMIX BAG IVPB PRN (18:51)
[2020-08-31] MEDS: Rosuvastatin 20 MG TAB PO SCH (20:00)
[2020-08-31] MEDS: Famotidine/PF 20 mg/2ml Vial SLOW IVP SCH (20:00)
[2020-08-31] MEDS: cloNIDine 0.1 MG TAB PO PRN (20:00)
[2020-08-31] MEDS: traMADol HCl 50 MG TAB PO PRN (20:01)
[2020-08-31] MEDS: Labetalol HCl 100 MG/20 ML VIAL SLOW IVP PRN (22:00)
[2020-09-01] MEDS: Nitroglycerin 50 MG/250 ML BOT 250 ML IVPB PRN (00:03)
[2020-09-01] MEDS: CEFAZOLIN 2 GM in Premix Bag 1 BAG IVPB SCH ×2 (00:04→11:56)
[2020-09-01] MEDS: HYDROcodone/Acetaminophen 5/325 mg Tablet PO PRN ×3 (00:08→20:28)
[2020-09-01] MEDS: cloNIDine 0.1 MG TAB PO PRN ×2 (00:11→13:02)
--- NOTE | 2020-09-01 00:29 | CON ---
DATE OF CONSULTATION: INDICATION FOR CONSULTATION: 80-year-old patient, status post bypass surgery today. HISTORY OF PRESENT ILLNESS: This is a patient of Dr. Deisy Lin. They have apparently no intensive care unit to take care of the patients postoperatively and the patient was sent here where he underwent bypass surgery, and he is now in the intensive care unit and we were asked to see him a very unfortunate 80-year-old gentleman with coronary artery disease, who went bypass surgery today with off pump bypass with RICHARD to the left anterior descending artery, and also to saphenous vein graft to a diagonal branch. He is now extubated. He is doing quite well except he complains of abdominal pain, but otherwise seems to be doing quite well from a cardiac standpoint, and his blood pressure is slightly elevated, which may be due to the abdominal pain he at this time encountering but otherwise, he appears to be stable. He has no arrhythmias, and appears to be doing overall as well expected postoperatively. PAST MEDICAL HISTORY: Significant for coronary artery disease, bypass surgery today. He has peripheral vascular disease undergone angioplasty and stent placement to the lower extremities. He has history of hypertension, hyperlipidemia, history of chronic kidney disease. He has history of carotid artery stenosis. He has history of hypertension, dyslipidemia, prostate cancer. He has osteoarthritis. He had undergone a partial colectomy with reversal. He has had a cholecystectomy. FAMILY HISTORY: Noncontributory to the present illness. SOCIAL HISTORY: He does no alcohol or tobacco abuse. ALLERGIES: HE IS ALLERGIC TO MORPHINE, BUT IT IS NOT A TRUE ALLERGY. HE APPARENTLY JUST DOES NOT LIKE THE EFFECTS OF THE MORPHINE. MEDICATIONS: Prior to admission included: 1. Coreg. 2. Hydralazine. 3. Clonidine. 4. Rosuvastatin. 5. Plavix. 6. Levofloxacin. 7. Isosorbide dinitrate. 8. Nitroglycerin p.r.n. 9. Ipratropium bromide aerosol solution. 10.Other p.r.n. medications or [id number] medicines. REVIEW OF SYSTEMS: Relatively unremarkable except what is noted in the history of the present illness. He has had except for the complaints of the discomfort in the abdomen postoperatively. PHYSICAL EXAMINATION: GENERAL: Reveals a well-developed, well-nourished gentleman. He is in no acute distress at this time except for complaint of abdominal pain. VITAL SIGNS: Heart rate is 92, that shows a regular rhythm, sinus. Blood pressure is 128/78 by cuff, but by arterial catheter 160/64, O2 saturation is 98%, respiratory rate is 18. HEENT: Head is normocephalic and atraumatic. NECK: He has bilateral carotid bruits, which are very soft. HEART: He has a regular rate and rhythm. Slightly tachycardic, but otherwise unremarkable. CHEST: Clear anteriorly. He has chest tubes in place. ABDOMEN: He has well-healed surgical incisions, and positive bowel sounds are present. He does have tympany, but I cannot palpate any masses. EXTREMITIES: Show no clubbing or cyanosis. He has decreased pulses on the right foot and right popliteal area, but the left is normal. NEUROLOGIC: The patient appears to be intact. LABORATORY DATA: Shows a hemoglobin 9.3, hematocrit 28.1. BUN was 30 with creatinine of 1.87, blood sugar was 152. Sodium was 140, potassium was 4.0. IMPRESSION: 1. 80-year-old gentleman who underwent bypass surgery today for coronary artery disease. He seems to be doing quite well from a cardiac standpoint at this time. We will continue to monitor him. 2. Hypertension. He need to reinstate his medications, and we will continue to follow him. I believe some of the hypertension may be due to abdominal pain. He does seem to be somewhat uncomfortable. We can certainly change medications or increase as needed. 3. History of hypercholesterolemia. We will resume his statins when he is taking p.o. medications. 4. Peripheral vascular disease. This appears also to be stable except there is decreased pulses on the right side, but they are present. 5. Peripheral vascular disease and carotid artery stenosis. This also appears to be stable at this time. 6. He does have chronic kidney disease. We will continue to monitor this as the patient is in the intensive care unit at this time. If necessary, we will need to involve the pedodontist. Otherwise, from a cardiac standpoint, he remained stable. We are more than happy to continue to follow the patient with you. Job ID: [id number] [facility]
[2020-09-01] MEDS: Sodium Chloride 0.9% 1,000 ML IV SCH (02:17)
[2020-09-01 03:46] LABS: #Lymphocytes 0.6 thou/uL (1.20-3.40); #Monocytes 0.8 thou/uL (0.11-0.59); #Neutrophils 7.8 thou/uL (1.40-6.50); %Basophils 0.1 % (0.0-1.0); %Eosinophils 0.1 % (0.0-10.0); %Lymphocytes 6.3 % (21.0-51.0); %Monocytes 8.6 % (0.0-10.0); Hemoglobin 8.5 g/dL (14.0-18.0); Mean Corpuscular HGB CONC 34.2 g/dL (32.0-36.0); Mean Corpuscular Hemoglobin 29.7 pg (27.0-31.0); Mean Corpuscular Volume 86.8 fL (78.0-98.0); Mean Platelet Volume 9.5 fL (7.4-10.4); Platelet Count 138 thou/uL (130-400); RBC Distribution Width 13.5 % (11.5-14.5); Red Blood Cell (RBC) Count 2.85 mill/uL (4.70-6.10); White Blood Cell (WBC) Count 9.2 thou/uL (4.8-10.8)
[2020-09-01 04:06] LABS: Anion Gap 12 mmol/L (10-20); BUN (Urea Nitrogen) 30 mg/dL (8.4-25.7); Calc. Creatinine Clearance 33 mL/min (70-130); Carbon Dioxide 18 mmol/L (23-31); Chloride 111 mmol/L (98-107); Estimated GFR-MDRD 32; Glucose 121 mg/dL (83-110); Sodium 137 mmol/L (136-145)
[2020-09-01] MEDS: Potassium Chloride 20 MEQ/100 ML PREMIX BAG IVPB PRN (05:01)
[2020-09-01] MEDS: traMADol HCl 50 MG TAB PO PRN ×3 (06:42→23:49)
[2020-09-01] MEDS: Labetalol HCl 100 MG/20 ML VIAL SLOW IVP PRN ×3 (06:43→20:30)
--- NOTE | 2020-09-01 09:40 | RAD ---
Radiograph abdomen one view: 09/01/2020 9:08 AM HISTORY: 80-year-old male with abdominal distention FINDINGS: Gaseous distention of the stomach. Moderate amount of bowel gas along nondilated transverse colon, he patic flexure, and ascending colon. No air-filled dilated small bowel loops visualized. Right upper quadrant cluster of surgical clips. N o signs of organomegaly. IMPRESSION: 1.) Gaseous gastric distention. 2) no evidence of small bowel obstruction
--- NOTE | 2020-09-01 09:42 | RAD ---
RADIOGRAPH CHEST 1 VIEW: DATE: 09/01/2020 TIME: 9:12 AM HISTORY: 80-year-old male with abdominal distention and chest pain COMPARISON: 09/01/2020 4:53 AM FINDINGS: Gaseous gastric distention has slightly improved. No pneumoperitoneum. Consolidation of left lower lo be remains. Shallow inspiration. Rest of the visualized lung vaz are clear. Left paramedian mediastinal tube. Right subclavian central line. Sternotomy wires. No pneumothorax. No interval faulkenr e in appearance of the lungs. IMPRESSION: 1) gaseous gastric distention, slightly improved. 2) left lower lobe consolidation unchanged. 3) no pneumoperitoneum.
--- NOTE | 2020-09-01 09:45 | RAD ---
RADIOGRAPH CHEST 1 VIEW: DATE: 09/01/2020 TIME: 4:53 AM HISTORY: 80-year-old male status post open heart surgery COMPARISON: 08/31/2020 FINDINGS: Previously, the patient was supine, and that probably accounts for the diffuse haziness throughout th e left lung vaz consistent with posteriorly layering left pleural effusion. Now that the patient is upright, the visualized left upper and mid lung vaz are grossly clear. Sma ll left pleural effusion. There is consolidation of left lower lobe consistent with atelectasis. Right lung is grossly clear. Endotracheal tube has been removed. Right subclavian central line and left paramedian chest tube remains. New finding of gaseous distention of the stomach. No pneumothorax. IMPRESSION: 1) left lower lobe atelectasis and left pleural effusion. 2) gaseous gastric distention. 3) status post extubation
[2020-09-01] MEDS ORDERED: Bisacodyl 10 MG SUPP PR PRN (10:24)
[2020-09-01] MEDS ORDERED: Mineral Oil ENEMA PR PRN (10:24)
[2020-09-01] MEDS ORDERED: Zolpidem Tartrate 5 MG TAB PO PRN (10:24)
[2020-09-01] MEDS ORDERED: Guaifenesin DM 100-10/5 ML UDCUP PO PRN (10:24)
[2020-09-01] MEDS ORDERED: diphenhydrAMINE 25 MG CAP PO PRN (10:24)
[2020-09-01] MEDS ORDERED: Mag-Al 1200 mg/1200 mg/30 ML UDCUP PO PRN (10:24)
[2020-09-01] MEDS ORDERED: Insulin Regular 300 UNITS/3 ML VIAL SC PRN (11:00)
[2020-09-01] MEDS ORDERED: Dextrose 5% in Water 1,000 ML IV PRN (11:00)
[2020-09-01] MEDS ORDERED: Dextrose 50% Abboject 50 ML SYRINGE SLOW IVP PRN (11:00)
[2020-09-01] MEDS ORDERED: Carvedilol 3.125 MG TAB PO SCH ×2 (11:00→17:00)
[2020-09-01] MEDS: Clopidogrel Bisulfate 75 MG TAB PO SCH (11:55)
[2020-09-01] MEDS: Aspirin Chewable 81 MG TAB PO SCH (11:56)
[2020-09-01] MEDS: Metoclopramide HCl 10 MG/2 ML VIAL IVP SCH ×3 (12:00→23:49)
[2020-09-01] MEDS: hydrALAZINE 25 MG TAB PO SCH ×2 (12:25→20:28)
[2020-09-01] MEDS: Carvedilol 3.125 MG TAB PO SCH (16:59)
[2020-09-01] MEDS: Rosuvastatin 20 MG TAB PO SCH (20:28)
[2020-09-01] MEDS: Famotidine/PF 20 mg/2ml Vial SLOW IVP SCH (20:28)
[2020-09-02] MEDS: cloNIDine 0.1 MG TAB PO PRN ×2 (00:57→05:54)
[2020-09-02 04:12] LABS: #Eosinphils 0.1 thou/uL (0.0-0.7); #Lymphocytes 0.7 thou/uL (1.20-3.40); #Monocytes 1.1 thou/uL (0.11-0.59); #Neutrophils 7.3 thou/uL (1.40-6.50); %Basophils 0.2 % (0.0-1.0); %Eosinophils 1.3 % (0.0-10.0); %Lymphocytes 7.9 % (21.0-51.0); %Monocytes 11.9 % (0.0-10.0); %Neutrophils 78.8 % (42.0-75.0); Hemoglobin 9.9 g/dL (14.0-18.0); Mean Corpuscular HGB CONC 32.6 g/dL (32.0-36.0); Mean Corpuscular Hemoglobin 28.4 pg (27.0-31.0); Mean Platelet Volume 10.4 fL (7.4-10.4); Platelet Count 131 thou/uL (130-400); RBC Distribution Width 13.9 % (11.5-14.5); Red Blood Cell (RBC) Count 3.47 mill/uL (4.70-6.10); White Blood Cell (WBC) Count 9.2 thou/uL (4.8-10.8)
[2020-09-02] MEDS: Labetalol HCl 100 MG/20 ML VIAL SLOW IVP PRN ×2 (04:17→22:59)
[2020-09-02 04:33] LABS: Anion Gap 14 mmol/L (10-20); BUN (Urea Nitrogen) 31 mg/dL (8.4-25.7); Calc. Creatinine Clearance 34 mL/min (70-130); Calcium 7.6 mg/dL (7.8-10.44); Carbon Dioxide 18 mmol/L (23-31); Chloride 110 mmol/L (98-107); Estimated GFR-MDRD 32; Glucose 108 mg/dL (83-110); Potassium 4.3 mmol/L (3.5-5.1); Sodium 138 mmol/L (136-145)
[2020-09-02] MEDS: Metoclopramide HCl 10 MG/2 ML VIAL IVP SCH (05:46)
[2020-09-02] MEDS: HYDROcodone/Acetaminophen 5/325 mg Tablet PO PRN ×3 (05:54→18:02)
[2020-09-02] MEDS: Nitroglycerin 0.4 MG TAB (25 Tab Bottle) SL PRN ×2 (07:44→07:50)
--- NOTE | 2020-09-02 07:49 | RAD ---
BMB chest one view HISTORY: Heart surgery. Follow-up. COMPARISON: 09/01/2020. FINDINGS: Cardiac silhouette is magnified by projection. Pulmonary vasculature upper limits of normal and accentuated by shallow inspiration. Mediastinum is midline with postoperative changes. Lines and tubes appear unchanged in position. Ill-defined parenchymal and pleural opacity at the left base has the appearance of atelectasis and sm all amount of pleural fluid and is unchanged. No evidence of pneumothorax. Gaseous distention of bowel within the partially visualized upper abdomen is similar to the previous study. IMPRESSION : Stable postoperative appearance of the chest.
[2020-09-02] MEDS ORDERED: Carvedilol 6.25 MG TAB PO SCH (08:15)
[2020-09-02] MEDS: Carvedilol 3.125 MG TAB PO SCH (08:27)
[2020-09-02] MEDS: Clopidogrel Bisulfate 75 MG TAB PO SCH (08:29)
[2020-09-02] MEDS: hydrALAZINE 25 MG TAB PO SCH ×3 (08:29→20:04)
[2020-09-02] MEDS: Furosemide 40 MG TAB PO SCH (08:29)
[2020-09-02] MEDS: Aspirin Chewable 81 MG TAB PO SCH (08:30)
--- NOTE | 2020-09-02 08:44 | OP ---
DATE OF PROCEDURE: 08/31/2020 PREOPERATIVE DIAGNOSIS: Postoperative bleeding. PROCEDURE PERFORMED: Exploration sternotomy. FINDINGS: Diffuse oozing. DESCRIPTION OF PROCEDURE: The patient was still on the operating table from his coronary bypass grafting and had not been moved to the bed and he was bleeding significantly from his chest tubes. His blood pressure was elevated at 150, however, even bringing his blood pressure down to about 110 did not improve the bleeding situation. Platelet pack was ordered and the patient was re-prepped and draped and the sternotomy incision opened. After removing the wires, a sternal retractor was placed. There was no significant blood within the pericardial area or presternal space. Suctioning demonstrated no bleeding except oozing from the marrow of the sternum. All suture lines of the distal and proximal anastomosis were inspected as well as the HUEY bed, the HUEY and the vein graft. No bleeding sites were identified. The patient just had oozing from tissues in general with nothing to coagulate or ligate. The area was packed, re-examined, and irrigation carried out. Bone wax was used on the sternal edges and the sternum was then reapproximated with #7 interrupted wire. All wire sites were then inspected with no bleeding. Vancomycin paste was used on the sternal edges. Sternum was reapproximated with wires and then the subcutaneous tissue and skin closed in layers. The patient received 1 unit of packed red cells, one platelet pack, and two fresh frozen were ordered, but not available by the time the chest was closed. Job ID: [id number]
--- NOTE | 2020-09-02 08:56 | EKG ---
Test Reason : POST CABG Blood Pressure : / mmHG Vent. Rate : 062 BPM Atrial Rate : 062 BPM P-R Int : 166 ms QRS Dur : 152 ms QT Int : 512 ms P-R-T Axes : 029 088 022 degrees QTc Int : 519 ms Normal sinus rhythm Right bundle branch block Abnormal ECG No previous ECGs available Confirmed by DR. Lacey COLE ([id number]) on 09/02/2020 8:56:43 AM Referred By: ANTONIETA Confirmed By:DR. Lacey COLE
[2020-09-02] MEDS ORDERED: Isosorbide Dinitrate 20 MG TAB PO SCH (11:00)
--- NOTE | 2020-09-02 11:08 | PDOC.CPN ---
- Subjective Date: 09/02/20 Time: 11:07 Interval history: Patient c/o CP last night. Relieved by nitro. BP significantly elevated requiring multiple IV doses of labetalol and clonidine PRN. Pain resolved now, but discomfort from CT. Patient states just tired. - Review of Systems General: denies: fever/chills, weight/appetite/sleep changes, night sweats, f atigue Respiratory: denies: cough, congestion, shortness of breath, exercise intolerance Cardiovascular: reports: chest pain Gastrointestinal: denies: nausea, vomiting, diarrhea, constipation, abd pain, GI bleeding Musculoskeletal: denies: pain, tenderness, stiffness, swelling, arthritis/arthralgias Neurological: denies: numbness, syncope, seizure, weakness - Objective Allergies/Adverse Reactions: Allergies Allergy/AdvReac Type Severity Reaction Status Date / Time aspirin Allergy Verified 08/29/20 11:34 NSAIDS (Non-Steroidal Allergy Verified 08/29/20 11:34 Anti-Inflamma morphine AdvReac Mild dizziness Verified 08/29/20 11:19 Visit Medications: Current Medications Hydrocodone Bitart/Acetaminophen (Hydrocodone/Acetaminophen 5/325 Mg Tablet) 1 tab PO Q6H PRN PRN Reason: Severe Pain (7-10) Last Admin: 09/02/20 05:54 Dose: 1 tab Documented by: Al Hydroxide/Mg Hydroxide (Mag-Al 1200 Mg/1200 Mg/30 Ml Udcup) 30 ml PO Q4H PRN PRN Reason: Indigestion Aspirin (Aspirin Chewable 81 Mg Tab) 81 mg PO DAILY [facility] Last Admin: 09/02/20 08:30 Dose: Not Given Documented by: Bisacodyl (Bisacodyl 5 Mg Tab) 10 mg PO Q12H PRN PRN Reason: Constipation Bisacodyl (Bisacodyl 10 Mg Supp) 10 mg DC Q12H PRN PRN Reason: Constipation Carvedilol (Carvedilol 6.25 Mg Tab) 12.5 mg PO BID[facility] Clonidine (Clonidine 0.1 Mg Tab) 0.1 mg PO Q4H PRN PRN Reason: SBP GREATER THAN 160 Last Admin: 09/02/20 05:54 Dose: 0.1 mg Documented by: Clonidine (Clonidine 0.1 Mg Tab) 0.1 mg PO BID [facility] Clopidogrel Bisulfate (Clopidogrel Bisulfate 75 Mg Tab) 37.5 mg PO DAILY [facility] Last Admin: 09/02/20 08:29 Dose: 37.5 mg Documented by: Dextrose/Water (Dextrose 50% Abboject 50 Ml Syringe) 25 gm SLOW IVP PRN PRN PRN Reason: PER HYPOGLYCEMIC PROTOCOL Diphenhydramine HCl (Diphenhydramine 25 Mg Cap) 25 mg PO Q6H PRN PRN Reason: Itching & Insomnia or Fred Sonido Famotidine (Famotidine/Pf 20 Mg/2ml Vial) 20 mg SLOW IVP 2100 [facility] Last Admin: 09/01/20 20:28 Dose: 20 mg Documented by: Furosemide (Furosemide 40 Mg Tab) 40 mg PO DAILY [facility] Last Admin: 09/02/20 08:29 Dose: 40 mg Documented by: Glucagon (Glucagon 1 Mg/Ml Vial) 1 mg SC PRN PRN PRN Reason: PER HYPOGLYCEMIC PROTOCOL Guaifenesin/Dextromethorphan (Guaifenesin Dm 100-10/5 Ml Udcup) 15 ml PO Q4H PRN PRN Reason: Cough Hydralazine HCl (Hydralazine 25 Mg Tab) 25 mg PO TID [facility] Dextrose/Water (D5w) 1,000 mls @ 0 mls/hr IV INF PRN PRN Reason: PRN HYPOGLYCEMIC PROTOCOL Insulin Human Regular (Insulin Regular 300 Units/3 Ml Vial) 0 units SC Q4H PRN; Protocol PRN Reason: POST OP SLIDING SCALE Isosorbide Dinitrate (Isosorbide Dinitrate 20 Mg Tab) 10 mg PO BID [facility] Isosorbide Dinitrate (Isosorbide Dinitrate 20 Mg Tab) 10 mg PO NOW [facility] Stop: 09/02/20 13:00 Labetalol HCl (Labetalol Hcl 100 Mg/20 Ml Vial) 10 mg SLOW IVP Q6H PRN PRN Reason: .SBP > 180 Last Admin: 09/02/20 04:17 Dose: 10 mg Documented by: Mineral Oil (Mineral Oil Enema) 133 ml DC DAILYPRN PRN PRN Reason: Constipation Nitroglycerin (Nitroglycerin 0.4 Mg Tab (25 Tab Bottle)) 0.4 mg SL Q5MIN PRN PRN Reason: Chest Pain Last Admin: 09/02/20 07:50 Dose: 0.4 mg Documented by: Ondansetron HCl (Ondansetron Pf 4 Mg/2 Ml Vial) 4 mg IVP Q6H PRN PRN Reason: Nausea/Vomiting Rosuvastatin Calcium (Rosuvastatin 20 Mg Tab) 20 mg PO HS [facility] Last Admin: 09/01/20 20:28 Dose: 20 mg Documented by: Tramadol HCl (Tramadol Hcl 50 Mg Tab) 50 mg PO Q4H PRN PRN Reason: Moderate Pain (4-6) Last Admin: 09/01/20 23:49 Dose: 50 mg Documented by: Zolpidem Tartrate (Zolpidem Tartrate 5 Mg Tab) 5 mg PO HSPRN PRN PRN Reason: Insomnia Vital Signs & Weight: Vital Signs Temp Pulse Resp BP BP Pulse Ox 09/02/20 07:54 94 L 09/02/20 07:16 99.2 F 101 H 20 192/89 H 94 L 09/02/20 05:54 165/87 H 09/02/20 04:17 91 09/02/20 04:00 98.8 F 91 20 188/86 H 92 L 09/02/20 01:00 95 09/02/20 00:57 187/86 H 09/02/20 00:00 22 H 183/86 H 95 Weight 172 lb 8 oz - Physical Exam General: alert & oriented x3, appears well, no apparent distress HEENT: mucus membranes moist Neck: supple neck Cardiac: regular rate and rhythm Lungs: clear to auscultation, other (CT in placed) Neuro: grossly intact Abdomen: soft, non-tender Extremities: no edema Skin: clear Musculoskeletal: no pain - Labs Result Diagrams: 09/02/20 03:20 09/02/20 03:20 - Assessment/Plan Assessment/Plan: 1. CAD s/p CABG x 2 (RICHARD-LAD and SVG-D1) 2. HTN 3. HLD Continue ASA, bblocker and statin. Will resume Isordil for BP control as patient was well-controlled with this pre-op. Continue IS. Plan to pull CT tomorrow. Pt. seen and eval. by me. I agree with the A/P by the PA. Chest tubes still in but pt. stable. Decreased po intake. Chest clear anteriorly. RRR. No edema. gjm
[2020-09-02] MEDS: Bisacodyl 5 MG TAB PO PRN (12:37)
[2020-09-02] MEDS: Carvedilol 6.25 MG TAB PO SCH (16:07)
[2020-09-02] MEDS: Famotidine/PF 20 mg/2ml Vial SLOW IVP SCH (20:04)
[2020-09-02] MEDS: cloNIDine 0.1 MG TAB PO SCH (20:04)
[2020-09-02] MEDS: Isosorbide Dinitrate 20 MG TAB PO SCH (20:05)
[2020-09-02] MEDS: Rosuvastatin 20 MG TAB PO SCH (20:05)
[2020-09-03] MEDS: cloNIDine 0.1 MG TAB PO PRN (00:07)
[2020-09-03] MEDS: HYDROcodone/Acetaminophen 5/325 mg Tablet PO PRN (00:07)
[2020-09-03 04:54] LABS: Anion Gap 15 mmol/L (10-20); BUN (Urea Nitrogen) 31 mg/dL (8.4-25.7); Calc. Creatinine Clearance 34 mL/min (70-130); Calcium 7.6 mg/dL (7.8-10.44); Carbon Dioxide 19 mmol/L (23-31); Chloride 106 mmol/L (98-107); Estimated GFR-MDRD 33; Glucose 89 mg/dL (83-110); Potassium 3.7 mmol/L (3.5-5.1); Sodium 136 mmol/L (136-145)
--- NOTE | 2020-09-03 07:32 | PRG ---
DATE OF SERVICE: 09/03/2020 The patient's blood pressures remained somewhat elevated in the 160 to 180 range on his admitting medicines. He states he did walk yesterday about 30 feet according to the notations. He continues to have rather slow mental processes, but is appropriate. Laboratory values demonstrate stable creatinine of about 2 and stable hemoglobin of about 9.9. His chest tube output was 0 for the past 24 hours and these were removed. On looking at the chest tube, it looks like it had tipped over at some point in his postoperative course and he had about 900 mL in one chamber and about 300 in the other, suggesting his total output since surgery to be 1100. At this time, we need to proceed with ambulation and anticipate discharge in a couple of days if he continues to improve. Job ID: [id number]
--- NOTE | 2020-09-03 08:11 | RAD ---
PORTABLE CHEST: INDICATION: Postop sternotomy/post CABG procedure. COMPARISON: 09/02/2020. FINDINGS: Cardiomegaly with postop sternotomy. Small bilateral effusions and bibasilar atelectasis. There is mild vascular engorgement. The lung vaz are unchanged from yesterday. Central line remains in go od position and is unchanged. IMPRESSION: Stable chest findings. POS: OFF
[2020-09-03] MEDS: hydrALAZINE 25 MG TAB PO SCH ×3 (08:38→20:01)
[2020-09-03] MEDS: Isosorbide Dinitrate 20 MG TAB PO SCH ×2 (08:39→20:08)
[2020-09-03] MEDS: Furosemide 40 MG TAB PO SCH (08:39)
[2020-09-03] MEDS: Carvedilol 6.25 MG TAB PO SCH ×2 (08:39→16:36)
[2020-09-03] MEDS: Aspirin Chewable 81 MG TAB PO SCH (08:40)
[2020-09-03] MEDS: cloNIDine 0.1 MG TAB PO SCH ×2 (08:40→20:01)
[2020-09-03] MEDS: Clopidogrel Bisulfate 75 MG TAB PO SCH (08:40)
[2020-09-03 10:11] LABS: #Eosinphils 0.2 thou/uL (0.0-0.7); #Lymphocytes 0.6 thou/uL (1.20-3.40); #Monocytes 0.6 thou/uL (0.11-0.59); #Neutrophils 5.1 thou/uL (1.40-6.50); %Basophils 0.1 % (0.0-1.0); %Lymphocytes 9.4 % (21.0-51.0); %Monocytes 9.4 % (0.0-10.0); %Neutrophils 78.1 % (42.0-75.0); Hemoglobin 9.2 g/dL (14.0-18.0); Mean Corpuscular HGB CONC 33.9 g/dL (32.0-36.0); Mean Corpuscular Hemoglobin 29.2 pg (27.0-31.0); Mean Corpuscular Volume 86.2 fL (78.0-98.0); Platelet Count 123 thou/uL (130-400); RBC Distribution Width 13.6 % (11.5-14.5); Red Blood Cell (RBC) Count 3.15 mill/uL (4.70-6.10); White Blood Cell (WBC) Count 6.5 thou/uL (4.8-10.8)
[2020-09-03 10:19] LABS: INR-International Normal Ratio 1.4
[2020-09-03 10:20] LABS: PTT 46.9 sec (22.9-36.1)
[2020-09-03 10:26] LABS: ALT (SGPT) Less than 7 U/L (8-55); AST (SGOT) 19 U/L (5-34); Albumin 3.3 g/dL (3.4-4.8); Alkaline Phosphatase 61 U/L (40-110); Anion Gap 14 mmol/L (10-20); BUN (Urea Nitrogen) 31 mg/dL (8.4-25.7); Bilirubin, Total 0.6 mg/dL (0.2-1.2); CK (CPK) 394 U/L (30-200); Calc. Creatinine Clearance 31 mL/min (70-130); Calcium 7.1 mg/dL (7.8-10.44); Carbon Dioxide 19 mmol/L (23-31); Chloride 105 mmol/L (98-107); Estimated GFR-MDRD 31; Globulin 2.3 g/dL (2.4-3.5); Glucose 156 mg/dL (83-110); Potassium 3.7 mmol/L (3.5-5.1); Protein, Total 5.6 g/dL (5.8-8.1); Sodium 134 mmol/L (136-145)
[2020-09-03 10:48] LABS: CKMB 4.2 ng/mL (0-6.6)
--- NOTE | 2020-09-03 12:16 | CT ---
CT BRAIN WITHOUT CONTRAST: Date: 09/03/2020 HISTORY: Level I stroke. Left-sided weakness and gaze with facial droop. Patient had open heart surgery 3 days ago. COMPARISON: 02/16/2018. FINDINGS: Changes of chronic small vessel ischemic disease and small old infarction in the right cerebellar hem isphere are again seen. There is loss of powers-white matter differentiation and decreased attenuation in the medial right temp navi-occipital lobe. No hemorrhage, midline shift, or abnormal extra-axial fluid collections are seen. The ventricular size is appropriate and the basilar cisterns are patent. The bony calvarium is sailaja l. IMPRESSION: Findings are consistent with acute right QA TEST ANALYST infarction. Discussed over the telephone with ER physician, Dr. Priya Leon, at 1023 hours. CODE CR. POS: [facility]
--- NOTE | 2020-09-03 12:27 | PRG ---
DATE OF SERVICE: 09/03/2020 The patient had a Code Green Stroke protocol this morning because it was felt like his left side was not moving. The patient also had a visual field defect that in retrospect was probably present postoperatively as the patient mentioned something to his that he had some difficulty saying, but that was not related to any of the health care personnel. In any event, the patient had a noncontrast CT of the brain showing a right temporal-occipital infarct of subacute nature suggesting 2 to 3 days old. In the context of this finding, emergency room physician, who was running the [employer], ordered a CT angiogram of the head and neck, which showed a posterior circulation deficit in the head as well as the known significant right internal carotid artery lesion. In addition to the known right internal carotid artery lesion at the bulb, there also appeared to be a small ulceration in this. In any event, the lower most cuts on the CT angiogram of the neck and head was suspicious for a possible dissection in the distal aspect of the ascending aorta with no dissection distally into the arch. Unfortunately, the more proximal ascending aorta could not be visualized. Currently, the patient remains hypertensive and is in the process of getting transferred to the ICU for IV beta-mara therapy since he may have an aortic dissection. In addition, he did have breakfast this morning, so a transesophageal echo is not feasible at the current time. The patient also has a creatinine baseline of additional contrast is probably not warranted to look at his ascending aorta more proximally. I have spoken with Radiology and they are going to attempt an MRI and if this does show ascending aortic dissection, then probably consider transfer to [facility]. If it is just a localized dissection, we will proceed with IV beta-mara therapy primarily. On examination now, the patient is slightly sleepy, but awake and alert, can talk and respond to questions. He still is somewhat slow in responding, but this is the same as prior to admission to the hospital. He has good strength in his hands and feet and his speech is normal and he has no defects in his facial muscles. At this time, the patient has probably had an embolic event related to his off-pump coronary artery bypass grafting, perhaps with placement of the partial occluding clamp on the aorta. The aorta was noted to be somewhat thickened at that time, but there was no endovascular lesions noted with the partial occluding clamp in place. Secondly, the patient may have an ascending aortic dissection and we are in the process of trying to sort this out. If the MRI is not useful, Dr. Santos is planning on doing a RENEE today when he is out of the window in regard to his full stomach. We will begin some IV saline in addition to his IV beta-mara therapy to help with the contrast load that he received this morning. Job ID: [id number]
[2020-09-03] MEDS ORDERED: PROPOFOL 200 MG/20 ML VIAL ONE (12:28)
[2020-09-03] MEDS ORDERED: Ketamine 50 MG/ML (10ML VIAL) ONE ×2 (13:08→17:43)
[2020-09-03] MEDS ORDERED: PROPOFOL 0 ML ONE (13:08)
--- NOTE | 2020-09-03 13:10 | CT ---
CTA HEAD WITH IV CONTRAST AND 3D POSTPROCESSING CTA NECK WITH IV CONTRAST AND 3D POSTPROCESSING: Date: 09/03/2020 HISTORY: Level I stroke. Left-sided weakness and gaze with facial droop. Patient had open heart surgery 3 days ago. FINDINGS: There is a linear filling defect/intimal flap in the anterior aspect of the visualized portions of th e upper thoracic aorta consistent with dissection. Small bilateral pleural effusions are seen, left l arger than right. There is significant plaque causing high grade stenosis at the origin of the right ICA. There is mild calcified plaque in the left proximal ICA without significant stenosis. There is good flow in the MCA and BHARTI territories. There is occlusion of the right TECHNOLOGY DEVELOPMENT INTERN. Good flow is seen in the left TECHNOLOGY DEVELOPMENT INTERN. No flow is seen in the right posterior communicating artery. There is good flow in the vertebral arteries and the basilar artery. A dominant left vertebral artery is present. There are degenerative changes in the spine. IMPRESSION: 1. Right TECHNOLOGY DEVELOPMENT INTERN occlusion. 2. High grade stenosis of the proximal right ICA. 3. 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 Discussed over the phone with ER physician, Dr. Priya Leon, at 1023 hours. CODE CR. POS: AUDIE
[2020-09-03] MEDS ORDERED: Labetalol HCl 200 MG in Sodium Chloride 0.9% 250 ML 160 ML IVPB SCH (13:22)
[2020-09-03] MEDS: Sodium Chloride 0.9% 1,000 ML IV SCH ×3 (13:37→23:29)
[2020-09-03] MEDS ORDERED: Iopamidol-370 76% 500 ML 1 ML ONE (13:45)
[2020-09-03] MEDS: Labetalol HCl 100 MG/20 ML VIAL SLOW IVP PRN (13:53)
[2020-09-03] MEDS ORDERED: Sodium Chloride 0.9% 250 ML 250 ML IVPB SCH (14:15)
[2020-09-03] MEDS ORDERED: cloNIDine 0.2mg/24 Hour PATCH TD SCH (15:00)
[2020-09-03] MEDS ORDERED: Amlodipine 5 MG TAB PO SCH (15:00)
[2020-09-03] MEDS: traMADol HCl 50 MG TAB PO PRN (15:07)
[2020-09-03] MEDS: Esmolol 2,500 MG/250 ML 250 ML IVPB SCH ×2 (15:14→21:14)
--- NOTE | 2020-09-03 17:51 | MRI ---
MRI CHEST WITHOUT CONTRAST: History: Aortic dissection. FINDINGS: There is a displaced/mobile atherosclerotic plaque in the distal ascending thoracic aorta. No intimal flap is seen in the thoracic aorta to suggest dissection. There is fluid in the pericardial recess. No aneurysm is seen in the thoracic aorta. There are bilateral pleural effusions with adjacent atelec tatic changes. There are changes of median sternotomy. IMPRESSION: Displaced atherosclerotic plaque in the upper ascending thoracic aorta. No definite evidence of aorti c dissection. Recommend a follow up CTA of the chest. Discussed over the telephone with Dr. Kamlesh Santiago at 1:31 p.m. POS: [facility]
[2020-09-03] MEDS ORDERED: Ondansetron ODT 4 MG TAB PO PRN (19:47)
[2020-09-03] MEDS: Rosuvastatin 20 MG TAB PO SCH (20:02)
[2020-09-03] MEDS: Acetaminophen 325 MG TAB PO PRN (20:07)
[2020-09-04] MEDS ORDERED: Labetalol HCl 200 MG in Dextrose 5% in Water 160 ML IVPB SCH (00:01)
[2020-09-04] MEDS: Esmolol 2,500 MG/250 ML 250 ML IVPB SCH ×3 (00:45→10:01)
[2020-09-04 04:12] LABS: Anion Gap 14 mmol/L (10-20); BUN (Urea Nitrogen) 32 mg/dL (8.4-25.7); Calc. Creatinine Clearance 31 mL/min (70-130); Calcium 7.3 mg/dL (7.8-10.44); Carbon Dioxide 21 mmol/L (23-31); Chloride 105 mmol/L (98-107); Estimated GFR-MDRD 30; Glucose 97 mg/dL (83-110); Potassium 3.6 mmol/L (3.5-5.1); Sodium 136 mmol/L (136-145)
[2020-09-04 04:15] LABS: Hemoglobin 8.4 g/dL (14.0-18.0); Mean Corpuscular HGB CONC 33.5 g/dL (32.0-36.0); Mean Corpuscular Hemoglobin 29.1 pg (27.0-31.0); Mean Corpuscular Volume 86.8 fL (78.0-98.0); Mean Platelet Volume 9.3 fL (7.4-10.4); Platelet Count 131 thou/uL (130-400); RBC Distribution Width 13.5 % (11.5-14.5)
[2020-09-04 04:55] LABS: Band 15 % (5-11); Lymphocytes 11 % (21-51); MDiff Complete? YES; Monocytes 17 % (0-10); Neutrophil 57 % (42-75)
--- NOTE | 2020-09-04 07:24 | PRG ---
DATE OF SERVICE: 09/04/2020 The patient had some low-grade fever yesterday afternoon. Afebrile this morning. He is still maintaining esmolol drip for blood pressure control. I am trying to keep his blood pressures 130- 150 for the most part. I's and O's are slightly positive over the last 24 hours and post contrast load with his CT angiogram. His creatinine has increased slightly to 2.12 with stable BUN. Hemoglobin has drifted from 9.2 to 8.4. He is awake and alert, complains of some nausea this morning. His motor function is intact in the arms and legs while he is lying in bed. His lungs are clear. His chest incision looks good. His abdomen is soft with positive bowel sounds, nontender. Extremities, he has no edema. Plan today is to increase his Coreg to try and wean his esmolol infusion off. We will also try and get him out of bed in the chair at least and hopefully ambulating a bit in the room. Subsequent to all the evaluation yesterday, it appears that he has a plaque in his ascending aorta that might have slight displacement, but no obvious dissection. He has also suffered a posterior circulation stroke, probably related to the day of surgery, possibly due to an embolic event from his aortic plaque. In any event monitor, his renal function and begin PT and rehab at this time. Job ID: [id number] MTDD
[2020-09-04] MEDS: hydrALAZINE 25 MG TAB PO SCH ×3 (08:56→20:54)
[2020-09-04] MEDS: Aspirin Chewable 81 MG TAB PO SCH (08:56)
[2020-09-04] MEDS: Amlodipine 5 MG TAB PO SCH (08:57)
[2020-09-04] MEDS: cloNIDine 0.1 MG TAB PO SCH ×2 (08:57→20:55)
[2020-09-04] MEDS: Carvedilol 6.25 MG TAB PO SCH ×2 (08:57→16:46)
[2020-09-04] MEDS: Polyethylene Glycol 3350 17 GM Packet PO SCH (09:03)
[2020-09-04] MEDS: Isosorbide Dinitrate 20 MG TAB PO SCH ×2 (09:10→20:55)
[2020-09-04 13:44] VITALS: BMI 23.3
[2020-09-04] MEDS: Sodium Chloride 0.9% 1,000 ML IV SCH ×2 (15:06→19:22)
--- NOTE | 2020-09-04 16:33 | CON ---
DATE OF CONSULTATION: HISTORY OF PRESENT ILLNESS: Gabo Floyd is a 80-year-old gentleman, who is status post CABG, status post re-exploration for bleeding, he is now in the ICU, reason for consult. This morning, he is awake, alert, responsive, slightly encephalopathic as per the nurses, but he is moving all 4 extremities. No coughing or wheezing. PAST MEDICAL HISTORY: Coronary artery disease, previous peripheral vascular disease hyperlipidemia, chronic renal failure, carotid stenosis, prostatic cancer, arthritis. PAST SURGICAL HISTORY: Including cholecystectomy, recent CABG, previous colectomy. No alcohol or tobacco abuse. HOME MEDICATIONS: Include: 1. Plavix 75. 2. Vascepa 2 g. 3. Isordil 10. 4. Catapres 0.1. 5. Crestor 20. 6. Hydralazine 25 b.i.d. 7. Coreg 3.125. ALLERGIES: ASPIRIN, MORPHINE. SOCIAL HISTORY: Otherwise, unremarkable. REVIEW OF SYSTEMS: Otherwise, negative. PHYSICAL EXAMINATION: GENERAL: Lethargic, but arousable. VITAL SIGNS: O2 saturation pulse 80, respiratory rate 18, blood pressure 130/80. CHEST: Anterior rhonchi. CARDIAC: Normal S1, S2. No gallops. ABDOMEN: Soft without any masses. LABORATORY DATA: White count 5000, H and H 8 and 25, platelet count 131. Creatinine 2.1. IMPRESSION: 1. Status post coronary artery bypass grafting with re-exploration for bleeding. 2. Renal failure. 3. Intraoperative probably right TALENT ASSOCIATE infarct. PLAN: Continue aggressive PT, supportive care. Pulmonary/Critical Care will follow while in the ICU. Consultation note, 70 minutes, 50% direct patient care. Job ID: [id number]
[2020-09-04] MEDS: Rosuvastatin 20 MG TAB PO SCH (20:54)
[2020-09-04] MEDS: Acetaminophen 325 MG TAB PO PRN (20:55)
[2020-09-05] MEDS: Sodium Chloride 0.9% 1,000 ML IV SCH (04:33)
[2020-09-05 04:49] LABS: Anion Gap 11 mmol/L (10-20); BUN (Urea Nitrogen) 35 mg/dL (8.4-25.7); Calc. Creatinine Clearance 32 mL/min (70-130); Calcium 7.3 mg/dL (7.8-10.44); Carbon Dioxide 21 mmol/L (23-31); Chloride 108 mmol/L (98-107); Estimated GFR-MDRD 32; Glucose 103 mg/dL (83-110); Potassium 3.4 mmol/L (3.5-5.1); Sodium 137 mmol/L (136-145)
[2020-09-05 05:26] LABS: Band 10 % (5-11); Eosinophils 2 % (0-10); Hemoglobin 8.4 g/dL (14.0-18.0); Lymphocytes 18 % (21-51); MDiff Complete? YES; Mean Corpuscular HGB CONC 32.7 g/dL (32.0-36.0); Mean Corpuscular Hemoglobin 28.4 pg (27.0-31.0); Mean Corpuscular Volume 86.9 fL (78.0-98.0); Mean Platelet Volume 9.1 fL (7.4-10.4); Monocytes 13 % (0-10); Neutrophil 57 % (42-75); Platelet Count 139 thou/uL (130-400); RBC Distribution Width 13.5 % (11.5-14.5); Red Blood Cell (RBC) Count 2.95 mill/uL (4.70-6.10); White Blood Cell (WBC) Count 4.6 thou/uL (4.8-10.8)
--- NOTE | 2020-09-05 07:12 | PRG ---
DATE OF SERVICE: Patient has been afebrile. Blood pressure has been about 150 on no IV medications. LABORATORY VALUES: His creatinine is stable at 2.03. Potassium is slightly depressed at 3.4. His hemoglobin is stable at 8.4 and his white count is stable at about 4.6, although he does have some bands. He is sleepy but arouses and is conversant, although does not talk much, which is similar to his preop status, where he delayed answers and then spoke very slowly. Chest incision looks fine. Sternum appears stable. There is no erythema or drainage. Leg incisions are clean and dry. He has no peripheral edema, although he is supine in bed this morning. His lungs are clear. PLAN: At this time is to transfer back out to the floor. Resume rehab and anticipate he will have to go to the rehab center as an inpatient. We will begin low-dose Lasix as well. Job ID: [id number]
[2020-09-05] MEDS: Carvedilol 6.25 MG TAB PO SCH ×2 (07:15→17:33)
[2020-09-05] MEDS ORDERED: Furosemide 40 MG TAB PO SCH (08:30)
[2020-09-05] MEDS: hydrALAZINE 25 MG TAB PO SCH ×3 (09:07→20:39)
[2020-09-05] MEDS: Clopidogrel Bisulfate 75 MG TAB PO SCH (09:07)
[2020-09-05] MEDS: Potassium Chloride 10 MEQ TAB PO SCH (09:07)
[2020-09-05] MEDS: Polyethylene Glycol 3350 17 GM Packet PO SCH (09:07)
[2020-09-05] MEDS: Aspirin Chewable 81 MG TAB PO SCH (09:07)
[2020-09-05] MEDS: cloNIDine 0.1 MG TAB PO SCH ×2 (09:07→20:39)
[2020-09-05] MEDS: Amlodipine 5 MG TAB PO SCH (09:08)
[2020-09-05] MEDS: Acetaminophen 325 MG TAB PO PRN (10:54)
--- NOTE | 2020-09-05 10:58 | PRG ---
DATE OF SERVICE: 09/05/2020 SUBJECTIVE: This morning, he is awake, alert, and responsive. No shortness of breath. He is transferred to the ICU. OBJECTIVE: VITAL SIGNS: Temperature 98, pulse 72, blood pressure is 158/68, his oxygen saturation is 95% on room air CHEST: No wheezing. No crackles. CARDIAC: Normal S1, S2. No gallops. ABDOMEN: No masses. IMPRESSION: Respiratory failure, status post CABG, azotemia, CVA. PLAN: Pulmonary roy, he appears to be relatively stable. Continue PT, supportive care. Pulmonary is going to follow at a distance. Please call if needed. Job ID: [id number]
[2020-09-05] MEDS: Rosuvastatin 20 MG TAB PO SCH (20:39)
[2020-09-06 04:44] LABS: #Eosinphils 0.4 thou/uL (0.0-0.7); #Lymphocytes 0.9 thou/uL (1.20-3.40); #Monocytes 0.8 thou/uL (0.11-0.59); #Neutrophils 3.2 thou/uL (1.40-6.50); %Basophils 0.5 % (0.0-1.0); %Eosinophils 6.8 % (0.0-10.0); %Lymphocytes 17.7 % (21.0-51.0); %Monocytes 14.7 % (0.0-10.0); %Neutrophils 60.4 % (42.0-75.0); Mean Corpuscular HGB CONC 34.4 g/dL (32.0-36.0); Mean Corpuscular Hemoglobin 29.2 pg (27.0-31.0); Mean Corpuscular Volume 84.9 fL (78.0-98.0); Platelet Count 150 thou/uL (130-400); RBC Distribution Width 13.2 % (11.5-14.5); Red Blood Cell (RBC) Count 3.07 mill/uL (4.70-6.10); White Blood Cell (WBC) Count 5.2 thou/uL (4.8-10.8)
[2020-09-06 05:06] LABS: Anion Gap 12 mmol/L (10-20); BUN (Urea Nitrogen) 31 mg/dL (8.4-25.7); Calc. Creatinine Clearance 33 mL/min (70-130); Calcium 7.9 mg/dL (7.8-10.44); Carbon Dioxide 21 mmol/L (23-31); Chloride 104 mmol/L (98-107); Estimated GFR-MDRD 33; Glucose 106 mg/dL (83-110); Potassium 3.1 mmol/L (3.5-5.1); Sodium 134 mmol/L (136-145)
[2020-09-06] MEDS: Acetaminophen 325 MG TAB PO PRN (05:37)
[2020-09-06] MEDS ORDERED: Furosemide 40 MG TAB PO SCH (07:30)
[2020-09-06] MEDS: Aspirin Chewable 81 MG TAB PO SCH (08:01)
[2020-09-06] MEDS: cloNIDine 0.1 MG TAB PO SCH (08:01)
[2020-09-06] MEDS: Carvedilol 6.25 MG TAB PO SCH ×2 (08:01→18:57)
[2020-09-06] MEDS: Polyethylene Glycol 3350 17 GM Packet PO SCH (08:01)
[2020-09-06] MEDS: Clopidogrel Bisulfate 75 MG TAB PO SCH (08:02)
[2020-09-06] MEDS: Bisacodyl 5 MG TAB PO PRN (08:02)
[2020-09-06] MEDS: Potassium Chloride 10 MEQ TAB PO SCH (08:02)
[2020-09-06] MEDS: hydrALAZINE 25 MG TAB PO SCH ×2 (08:02→15:34)
--- NOTE | 2020-09-06 08:09 | PRG ---
DATE OF SERVICE: 09/06/2020 SUBJECTIVE: The patient is afebrile with stable vital signs. His blood pressure is somewhat better in the 150 range with a heart rate of 70 to 80. He mentally seems more alert, but is still as preop slow to answer. He states that he did get up to sit in the chair, although not sure how much he walked during the day, but at least with physical therapy on 2 occasions for short distance. His chest incision is fine. His lungs are clear and his legs have no edema. ASSESSMENT AND PLAN: I think at this time he is ready for discharge to the rehab center and continue current medications. Job ID: [id number]
[2020-09-06 15:33] VITALS: BP 138/64; TEMP 97.9
[2020-09-06] MEDS ORDERED: hydrALAZINE 25 MG TAB PO SCH (21:00)
--- NOTE | 2020-09-07 03:02 | DIS ---
DATE OF ADMISSION: 08/31/2020 DATE OF DISCHARGE: 09/06/2020 HOSPITAL COURSE: The patient was brought to the hospital six days ago, where he underwent an off pump coronary bypass graft to the LAD diagonal system. Initial postop course was unremarkable. However, on postoperative day #3, a code green was called due to the fact that it was felt the patient had some left-sided weakness. He also was found to have a left-sided visual field defect. Evaluation at that time included a CTA showing a posterior circulation arterial deficit in the left temporo-occipital region. No parietal lesion was found and in fact, the patient's motor function was normal. 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 In any event, the patient was also noted to have an abnormality near the distal ascending aorta on his CTA of his neck and subsequent RENEE did not demonstrate an arterial dissection. The patient had significant hypertension postoperatively and did require IV esmolol infusion. This was eventually tapered and stopped and he was maintained on Coreg 25 b.i.d., given one dose of amlodipine 5 mg a day and then this was stopped. He also resumed his clonidine 0.1 b.i.d. and his hydralazine 25 b.i.d. He was walking with the assistance of rehab and it is felt that he would benefit from inpatient rehab and he is being transferred there today. He is also going to be discharged on Lasix 40 a day and potassium 10 a day for an additional five days. His creatinine is stable at about 2, which is about where he was on admission. The chest incision is healing nicely as is leg incision. Job ID: [id number]
--- NOTE | 2020-09-07 06:34 | PQF ---
Dear : Kamlesh Santiago Date 09/07/20 Please exercise your independent, professional judgment in responding to the clarification form. Clinical indicators are provided on the bottom of this form for your review Can you please further clarify the specificity of encephalopathy? Please check appropriate box(es): [ ] Encephalopathy: Type: [ ] Acute [ ] Subacute [ ] Chronic Etiology: [ ] Hypertensive [ ] Metabolic [ ] Toxic [ ] Hypoxic [ ] Drug induced: [ ] In the setting of underlying dementia [ ] Unspecified [ y ] Other (please specify) _acute on chronic dementia [ ] Transient Alteration of Awareness [ ] Other diagnosis please specify [ ] Unable to determine Physician Signature: Date/Time: For continuity of documentation, please document condition throughout progress notes and discharge summary. Thank You. To be completed by CDI/Coding staff for physician review: Present Clinical Indicators - Signs / Symptoms / Labs Results and Location in Medical Record [ x ] Blood pressure has been about 150 on no IV medication PN pg.1 09/04 [ x ] He is sleepy but not arouses and is conversant PN pg.1 09/04 [ x ] Slight encephalopathic as per the nurses Consult pg.1 Dr. Carballo [ x ] Lethargic but not abusable PN pg.1 09/04 [ x ] The patient had significant hypertension postoperatively DS pg.1 [ x ] BP: 165/87, 162/74H, 162/74H, 179/89H, 180/80H Vital signs Present Risk Factors Results and Location in Medical Record [ x ] 80 years old Consult pg.1 [ x ] CAD Consult pg.1 [ x ] HTN Consult pg.1 [ x ] HLD Consult pg.1 [ x ] CKD Consult pg.1 [ x ] s/p CABG Consult pg.1 Present Treatments Results and Location in Medical Record [ x ] CT Brain 09/03 [ x ] Electrocardiogram 08/31 [ x ] Echocardiogram 09/04 [ x ] IV fluids MAR [ x ] BP monitoring VS CDS/Licensed Massage Therapist Signature: RebeccaBrandonRitchie Cortneykel Phone #: ext [phone] Date 09/07/20 This is a permanent part of the Medical Record [facility]
[2020-09-10] MEDS ORDERED: cloNIDine 0.2mg/24 Hour PATCH TD SCH (09:00)
== END 2020-09-06 21:46 | DRG 235 ==
LOC: SURG A 08-31 06:08 → CCU 08-31 10:22 → EDSTATUS 08-31 11:15 → 2NO 09-01 15:23 → CCU 09-03 13:20 → 2NO 09-05 07:57
PROVIDERS: ADMIT Thoracic Surgery (Cardiothoracic Vascular Surgery); ATTEND Thoracic Surgery (Cardiothoracic Vascular Surgery)
PROC: 02100Z9 Bypass Coronary Artery, One Artery from Left Internal Mammary, Open Approach (ICD-10-PCS; principal; 2020-08-31)
PROC: 021009W Bypass Coronary Artery, One Artery from Aorta with Autologous Venous Tissue, Open Approach (ICD-10-PCS; 2020-08-31)
PROC: 06BQ3ZZ Excision of Left Saphenous Vein, Percutaneous Approach (ICD-10-PCS; 2020-08-31)
PROC: 0WJ Anatomical Regions, General, Inspection (ICD-10-PCS; 2020-08-31)
PROC: B24BZZ4 Ultrasonography of Heart with Aorta, Transesophageal (ICD-10-PCS; 2020-08-31)
DX: I25.10 Atherosclerotic heart disease of native coronary artery without angina pectoris (principal); I63.531 Cerebral infarction due to unspecified occlusion or stenosis of right posterior cerebral artery; I97.810 Intraoperative cerebrovascular infarction during cardiac surgery; G81.94 Hemiplegia, unspecified affecting left nondominant side; I10 Essential (primary) hypertension; E78.5 Hyperlipidemia, unspecified; I73.9 Peripheral vascular disease, unspecified; M19.90 Unspecified osteoarthritis, unspecified site; E78.00 Pure hypercholesterolemia, unspecified; Z87.891 Personal history of nicotine dependence; Z90.49 Acquired absence of other specified parts of digestive tract; Z88.5 Allergy status to narcotic agent; Z79.890 Hormone replacement therapy; Z79.01 Long term (current) use of anticoagulants; Z79.51 Long term (current) use of inhaled steroids; Z79.899 Other long term (current) drug therapy; Z88.8 Allergy status to other drugs, medicaments and biological substances; F03.90 Unspecified dementia, unspecified severity, without behavioral disturbance, psychotic disturbance, mood disturbance, and anxiety; R29.703 NIHSS score 3; Y83.2 Surgical operation with anastomosis, bypass or graft as the cause of abnormal reaction of the patient, or of later complication, without mention of misadventure at the time of the procedure; H53.8 Other visual disturbances
CPT/HCPCS: 36415; 36416; 36430; 70450; 70496; 70498; 71045; 71550; 74018; 80048; 82550; 82553; 82805; 82947; 84484; 85025; 85027; 85610; 85730; 86850; 86900; 86901; 87635; 93005; 93010; 93312; 93798; 94002; 94640; J0461; J0690; J1100; J1642; J1644; J1815; J2250; J2270; J2405; J2440; J2704; J2720; J2765; J3010; J3370; J3480; J3490; J7050; J7620; P9016; P9035; P9045; P9059; Q0162; Q9967; S0017; S0028; U0003

== ENCOUNTER 2020-12-27 12:30 | Inpatient (IN) | payer MEDICARE, BC ==
[2021-01-01] MEDS ORDERED: Heparin 5,000 UNITS/ML VIAL ONE (06:30)
[2021-01-01] MEDS ORDERED: Protamine Sulfate 50 MG/5 ML VIAL ONE (06:30)
[2021-01-01] MEDS ORDERED: Fentanyl 100 MCG/2 ML VIAL ONE ×3 (06:47→12:40)
[2021-01-01] MEDS ORDERED: Bupivacaine 0.25% HCL 30 ML VIAL ONE (06:52)
[2021-01-01] MEDS ORDERED: EPINEPHrine 1 MG/ML AMP ONE (06:52)
[2021-01-01] MEDS ORDERED: Phenylephrine 10 MG/ML VIAL ONE (08:10)
[2021-01-01] MEDS ORDERED: Norepinephrine 8 MG/0.9% NS 250 ML IVPB PRN (09:45)
[2021-01-01] MEDS ORDERED: niCARdipine 25 MG in Sodium Chloride 0.9% 250 ML 240 ML IVPB PRN (09:45)
[2021-01-01] MEDS ORDERED: Promethazine HCl 25 MG/ML VIAL IM PRN ×2 (09:45→10:06)
[2021-01-01] MEDS ORDERED: Fentanyl 100 MCG/2 ML VIAL SLOW IVP PRN (09:45)
[2021-01-01] MEDS ORDERED: Ondansetron PF 4 MG/2 ML Vial IVP PRN (09:45)
[2021-01-01] MEDS ORDERED: Acetaminophen 325 MG TAB PO PRN (09:45)
[2021-01-01] MEDS ORDERED: traMADol HCl 50 MG TAB PO PRN (09:45)
[2021-01-01] MEDS ORDERED: Ondansetron HCl/PF 4 MG/2 ML Vial IVP PRN (10:06)
[2021-01-01] MEDS ORDERED: Promethazine HCl 25 MG/ML VIAL SLOW IVP PRN (10:06)
[2021-01-01] MEDS ORDERED: Lidocaine 1% PF 5 ML VIAL ONE (11:23)
[2021-01-01] MEDS ORDERED: Dexamethasone 20 MG/5 ML VIAL ONE (11:23)
[2021-01-01] MEDS ORDERED: Vecuronium 10 MG VIAL ONE (11:23)
[2021-01-01] MEDS ORDERED: ePHEDrine 50 MG/ML VIAL ONE (11:23)
[2021-01-01] MEDS ORDERED: Ondansetron PF 4 MG/2 ML Vial ONE (11:23)
[2021-01-01] MEDS ORDERED: Glycopyrrolate 0.2 MG/ML 5 ML SYRINGE ONE (11:23)
[2021-01-01] MEDS ORDERED: PROPOFOL 200 MG/20 ML VIAL ONE (11:23)
[2021-01-01] MEDS: Sodium Chloride 0.9% 1,000 ML IV SCH ×2 (12:00→23:17)
--- NOTE | 2021-01-01 12:09 | OP ---
DATE OF PROCEDURE: 01/01/2021 PREOPERATIVE DIAGNOSIS: Right carotid stenosis, severe. POSTOPERATIVE DIAGNOSIS: Right carotid stenosis, severe with ulcerated plaque. PROCEDURE PERFORMED: Right carotid endarterectomy with bovine patch angioplasty. ANESTHESIA: General. ESTIMATED BLOOD LOSS: Less than 100. DESCRIPTION OF PROCEDURE: After adequate anesthesia have been obtained, the patient was prepped and draped. Ultrasound had been used to isolate the carotid bulb. An incision was made in this region, dissecting down through the platysma, rotating sternocleidomastoid muscle laterally. The common internal and external were identified and the hypoglossal nerve was identified and mobilized gently to allow access to the high internal carotid artery. Following heparinization with a good HCT levels, arteriotomy was performed and a 14-Spanish was placed. Following this, an endarterectomy was performed and the plaque was divided distally rather than tracking it high into the neck. Two tacking sutures were used to secure the plaque. Following irrigation, a bovine patch was used to close the arteriotomy with a running 6-0 Prolene suture. Prior to completing the suture line, the shunt was removed, vessels backflushed and forward flushed, the area thoroughly irrigated and flow restored up the external and then internal carotid artery. Prolonged period of time was needed to obtain hemostasis through the needle holes and heparin was reversed with protamine. A small Donnie drain was placed through a separate stab incision and the wound was then closed in layers after obtaining hemostasis. Job ID: [id number]
[2021-01-01] MEDS ORDERED: FLU VACC QS2020-21(65YR UP)/PF 240 MCG/0.7 ML SYRINGE IM ONE (13:15)
[2021-01-01] MEDS ORDERED: Carvedilol 6.25 MG TAB PO SCH (17:00)
[2021-01-01] MEDS ORDERED: Non-Formulary Item 1 EACH (Icosapent Ethyl 1 GM Capsule) PO SCH (17:00)
[2021-01-01] MEDS: CEFAZOLIN 2 GM in Premix Bag 1 BAG IVPB SCH (18:41)
[2021-01-01 18:46] VITALS: BMI 22.0
[2021-01-01] MEDS ORDERED: cloNIDine 0.1 MG TAB PO SCH (21:00)
[2021-01-01] MEDS: hydrALAZINE 25 MG TAB PO SCH (23:18)
[2021-01-01] MEDS: Isosorbide Dinitrate 5 MG TAB PO SCH (23:18)
[2021-01-01] MEDS: Carvedilol 3.125 MG TAB PO SCH (23:18)
[2021-01-02] MEDS: Icosapent Ethyl 1 GM CAPSULE PO SCH ×2 (00:18→09:32)
[2021-01-02] MEDS: CEFAZOLIN 2 GM in Premix Bag 1 BAG IVPB SCH ×2 (00:18→06:17)
--- NOTE | 2021-01-02 06:11 | PDOC.CPN ---
- Subjective Date: 01/02/21 Time: 06:15 Interval history: Mr. Floyd is a 80 y old man 1 day post operation for a right carotid endarterectomy. He was awake and alert, laying in bed. His neck incision was clean and the bottm half was covered by a bandage. There was no apparent drainage. - Review of Systems General: denies: fever/chills, night sweats Gastrointestinal: denies: nausea (Patient had urinated multiple times in the night.), vomiting, diarrhea Musculoskeletal: denies: pain - Objective Allergies/Adverse Reactions: Allergies Allergy/AdvReac Type Severity Reaction Status Date / Time aspirin Allergy Verified 12/28/20 14:39 NSAIDS (Non-Steroidal Allergy Verified 12/28/20 14:39 Anti-Inflamma morphine AdvReac Mild dizziness Verified 12/28/20 14:39 Visit Medications: Current Medications Acetaminophen (Acetaminophen 325 Mg Tab) 650 mg PO Q4H PRN PRN Reason: Fever > 101 or headache Albuterol/Ipratropium (Ipratropium/Albuterol Sulfate 3 Ml Neb) 3 ml NEB [id number] PRN PRN Reason: SOB Aspirin (Aspirin Chewable 81 Mg Tab) 81 mg PO QAM [facility] Carvedilol (Carvedilol 3.125 Mg Tab) 3.125 mg PO BID-[facility] Last Admin: 01/01/21 23:18 Dose: 3.125 mg Documented by: Clonidine (Clonidine 0.1 Mg Tab) 0.1 mg PO HS [facility] Last Admin: 01/01/21 23:18 Dose: 0.1 mg Documented by: Hydralazine HCl (Hydralazine 25 Mg Tab) 50 mg PO BID [facility] Last Admin: 01/01/21 23:18 Dose: 50 mg Documented by: Cefazolin Sodium/Dextrose 2 gm (/ Device) 50 mls @ 100 mls/hr IVPB Q8H [facility] Stop: 01/02/21 07:29 Last Admin: 01/02/21 00:18 Dose: 50 mls Documented by: Norepinephrine Bitartrate (Levophed) 250 mls @ 0 mls/hr IVPB PRN PRN; Protocol PRN Reason: To Keep SBP > 90 mmHG Sodium Chloride (Normal Saline 0.9%) 1,000 mls @ 100 mls/hr IV .Q10H [facility] Last Admin: 01/01/21 23:17 Dose: 1,000 mls Documented by: Nicardipine HCl 25 mg/ Sodium (Chloride) 250 mls @ 0 mls/hr IVPB INF PRN; Protocol PRN Reason: To Keep SBP < 140 mmHG Isosorbide Dinitrate (Isosorbide Dinitrate 5 Mg Tab) 5 mg PO BID [facility] Last Admin: 01/01/21 23:18 Dose: 5 mg Documented by: Miscellaneous Medication (Icosapent Ethyl 1 Gm Capsule) 2 gm PO BID-[facility] Last Admin: 01/02/21 00:18 Dose: 2 gm Documented by: Ondansetron HCl (Ondansetron Pf 4 Mg/2 Ml Vial) 4 mg IVP Q6H PRN PRN Reason: Nausea/Vomiting Promethazine HCl (Promethazine Hcl 25 Mg/Ml Vial) 6.25 mg IM Q4H PRN PRN Reason: Nausea/Vomiting Sodium Chloride (Flush - Normal Saline 10 Ml Syringe) 10 ml IVF Q12HR [facility] Last Admin: 01/01/21 23:19 Dose: Not Given Documented by: Sodium Chloride (Flush - Normal Saline 10 Ml Syringe) 10 ml IVF PRN PRN PRN Reason: Saline Flush Vital Signs & Weight: Vital Signs Temp Pulse Resp BP Pulse Ox 01/02/21 05:19 98.3 F 76 18 126/57 L 94 L 01/02/21 00:30 71 18 125/57 L 01/01/21 23:18 65 01/01/21 20:00 97.6 F 65 18 131/59 L 97 01/01/21 18:30 97.8 F 59 L 16 127/60 100 Weight 73.663 kg - Physical Exam General: appears well, no apparent distress HEENT: mucus membranes moist, normocephaly Neck: supple neck (Some swelling in the right submandibular area.) Abdomen: unremarkable, other - Problem (1) Postop carotid endarterectomy surveillance, encounter for Code(s): Z48.812 - ENCNTR FOR SURGICAL AFTCR FOLLOWING SURGERY ON THE [facility] SYS Assessment and Plan: Mr. Floyd had not been up out of bed since the surgery. This morning he should ambulate and be monitored for any syncope.
[2021-01-02] MEDS: Sodium Chloride 0.9% 1,000 ML IV SCH (06:19)
[2021-01-02] MEDS ORDERED: Aspirin Chewable 81 MG TAB PO SCH (09:00)
[2021-01-02] MEDS: Isosorbide Dinitrate 5 MG TAB PO SCH (09:30)
[2021-01-02] MEDS: Carvedilol 3.125 MG TAB PO SCH (09:32)
[2021-01-02] MEDS: hydrALAZINE 25 MG TAB PO SCH (09:37)
[2021-01-02 09:39] VITALS: TEMP 99.2
[2021-01-02 09:45] VITALS: BP 108/55
--- NOTE | 2021-01-02 13:59 | DIS ---
DATE OF ADMISSION: 01/01/2021 DATE OF DISCHARGE: 01/02/2021 HOSPITAL COURSE: The patient was admitted for elective right carotid endarterectomy, which was performed without incident. He did have prolonged oozing from his suture line related to his aspirin and Plavix, and incidentally reported 2 days of nosebleeds. I will discharge him on his home medicines, but probably at this time he can go to every other day on his Plavix or half tablet a day. He does have chronic kidney disease and platelet dysfunction at his baseline. We will follow him up in 2 to 3 weeks and discharge instructions have been given. Job ID: [id number]
== END 2021-01-02 12:30 | disposition home or self-care (01) | DRG 39 ==
LOC: SURG A 01-01 06:06 → 2NO 01-01 18:38
PROVIDERS: ADMIT Thoracic Surgery (Cardiothoracic Vascular Surgery); ATTEND Thoracic Surgery (Cardiothoracic Vascular Surgery)
PROC: 03CH0ZZ Extirpation of Matter from Right Common Carotid Artery, Open Approach (ICD-10-PCS; principal; 2021-01-01)
PROC: 03UH0KZ Supplement Right Common Carotid Artery with Nonautologous Tissue Substitute, Open Approach (ICD-10-PCS; 2021-01-01)
DX: I65.21 Occlusion and stenosis of right carotid artery (principal); Z20.822 Contact with and (suspected) exposure to COVID-19; I73.9 Peripheral vascular disease, unspecified; E78.5 Hyperlipidemia, unspecified; I25.10 Atherosclerotic heart disease of native coronary artery without angina pectoris; M17.0 Bilateral primary osteoarthritis of knee; I12.9 Hypertensive chronic kidney disease with stage 1 through stage 4 chronic kidney disease, or unspecified chronic kidney disease; N18.30 Chronic kidney disease, stage 3 unspecified; Z79.82 Long term (current) use of aspirin; Z79.51 Long term (current) use of inhaled steroids; Z79.899 Other long term (current) drug therapy; Z79.52 Long term (current) use of systemic steroids; Z86.73 Personal history of transient ischemic attack (TIA), and cerebral infarction without residual deficits; Z90.49 Acquired absence of other specified parts of digestive tract; Z88.5 Allergy status to narcotic agent; Z95.1 Presence of aortocoronary bypass graft; Z87.891 Personal history of nicotine dependence
CPT/HCPCS: J0171; J0690; J1100; J1642; J1644; J2370; J2405; J2704; J2720; J3010; J3490; S0020

== ENCOUNTER 2021-04-11 09:59 | Outpatient (CLI) | payer MEDICARE, BC | END 2021-04-11 10:00 | disposition home or self-care (01) | LOC: PET 09:59 | PROVIDERS: ATTEND Psychiatry & Neurology Neurology | DX: G31.84 Mild cognitive impairment of uncertain or unknown etiology (principal) | CPT/HCPCS: 78803; A9552 ==

== ENCOUNTER 2021-11-11 12:03 | Observation (INO) | payer MEDICARE, BC ==
[2021-11-11 12:34] LABS: #Eosinphils 0.5 thou/uL (0.0-0.7); #Lymphocytes 1.9 thou/uL (1.20-3.40); #Monocytes 0.6 thou/uL (0.11-0.59); #Neutrophils 3.4 thou/uL (1.40-6.50); %Basophils 0.7 % (0.0-1.0); %Eosinophils 7.3 % (0.0-10.0); %Lymphocytes 29.8 % (21.0-51.0); %Monocytes 9.2 % (0.0-10.0); Hemoglobin 9.8 g/dL (14.0-18.0); Mean Corpuscular HGB CONC 33.2 g/dL (32.0-36.0); Mean Corpuscular Volume 87.5 fL (78.0-98.0); Mean Platelet Volume 9.2 fL (7.4-10.4); Platelet Count 147 thou/uL (130-400); RBC Distribution Width 12.9 % (11.5-14.5); Red Blood Cell (RBC) Count 3.39 mill/uL (4.70-6.10); White Blood Cell (WBC) Count 6.4 thou/uL (4.8-10.8)
[2021-11-11 12:46] LABS: INR-International Normal Ratio 1.2; Prothrombin Time 14.9 sec (12.0-14.7)
[2021-11-11 12:47] LABS: PTT 36.8 sec (22.9-36.1)
[2021-11-11] MEDS ORDERED: Acetaminophen 500 MG TAB ONE (12:56)
[2021-11-11 13:06] LABS: ALT (SGPT) 7 U/L (8-55); AST (SGOT) 13 U/L (5-34); Albumin 3.9 g/dL (3.4-4.8); Alkaline Phosphatase 73 U/L (40-110); Anion Gap 14 mmol/L (10-20); BUN (Urea Nitrogen) 57 mg/dL (8.4-25.7); Bilirubin, Total 0.4 mg/dL (0.2-1.2); CK (CPK) 86 U/L (30-200); Calc. Creatinine Clearance 0 mL/min (70-130); Calcium 8.5 mg/dL (7.8-10.44); Carbon Dioxide 18 mmol/L (23-31); Chloride 110 mmol/L (98-107); Globulin 3.3 g/dL (2.4-3.5); Glucose 149 mg/dL (83-110); Lipase 38 U/L (8-78); Potassium 4.7 mmol/L (3.5-5.1); Protein, Total 7.2 g/dL (5.8-8.1); Sodium 137 mmol/L (136-145)
[2021-11-11 13:22] LABS: Bilirubin Negative (Negative); Blood, Urine Negative (Negative); Clarity Clear (Clear); Glucose, Urine (Dipstick) Normal (Negative); Ketone, Urine Negative (Negative); Leukocyte Negative Leu/uL (Negative); Nitrite Negative (Negative); Protein, Urine (Dipstick) 20 mg/dL (Neg-Trace); Specific Gravity, Urine 1.012 (1.002-1.036); Urobilinogen Normal mg/dL (Less than 2)
[2021-11-11] MEDS ORDERED: Aspirin Chewable 81 MG TAB ONE (13:52)
[2021-11-11] MEDS ORDERED: Ondansetron ODT 4 MG TAB PO PRN (14:32)
[2021-11-11] MEDS ORDERED: Acetaminophen 325 MG TAB PO PRN (14:32)
[2021-11-11 16:55] LABS: Troponin I 0.017 ng/mL (< 0.028)
[2021-11-11 17:25] VITALS: BMI 22.8
[2021-11-11 19:28] LABS: Troponin I 0.015 ng/mL (< 0.028)
[2021-11-11] MEDS: Acetaminophen 500 MG TAB PO SCH (20:19)
[2021-11-11] MEDS: Methocarbamol 500 MG TAB PO SCH (20:19)
[2021-11-11] MEDS ORDERED: Famotidine 20 MG TAB PO SCH (21:00)
[2021-11-12] MEDS: Acetaminophen 500 MG TAB PO SCH ×2 (04:31→16:38)
[2021-11-12 05:11] LABS: #Eosinphils 0.4 thou/uL (0.0-0.7); #Lymphocytes 1.3 thou/uL (1.20-3.40); #Monocytes 0.6 thou/uL (0.11-0.59); #Neutrophils 3.2 thou/uL (1.40-6.50); %Basophils 0.7 % (0.0-1.0); %Eosinophils 7.9 % (0.0-10.0); %Lymphocytes 23.7 % (21.0-51.0); %Monocytes 10.4 % (0.0-10.0); %Neutrophils 57.3 % (42.0-75.0); Hemoglobin 9.9 g/dL (14.0-18.0); Mean Corpuscular HGB CONC 32.3 g/dL (32.0-36.0); Mean Corpuscular Hemoglobin 28.6 pg (27.0-31.0); Mean Corpuscular Volume 88.6 fL (78.0-98.0); Mean Platelet Volume 8.9 fL (7.4-10.4); Platelet Count 142 thou/uL (130-400); RBC Distribution Width 12.9 % (11.5-14.5); Red Blood Cell (RBC) Count 3.46 mill/uL (4.70-6.10); White Blood Cell (WBC) Count 5.5 thou/uL (4.8-10.8)
[2021-11-12 05:32] LABS: Anion Gap 11 mmol/L (10-20); BUN (Urea Nitrogen) 45 mg/dL (8.4-25.7); Calc. Creatinine Clearance 22 mL/min (70-130); Calcium 8.1 mg/dL (7.8-10.44); Carbon Dioxide 18 mmol/L (23-31); Chloride 114 mmol/L (98-107); Glucose 95 mg/dL (83-110); Potassium 4.3 mmol/L (3.5-5.1); Sodium 139 mmol/L (136-145)
[2021-11-12] MEDS: Methocarbamol 500 MG TAB PO SCH ×2 (08:58→14:11)
[2021-11-12] MEDS ORDERED: Famotidine 20 MG TAB PO SCH (09:00)
[2021-11-12] MEDS ORDERED: Carvedilol 3.125 MG TAB PO SCH ×2 (10:00→17:00)
[2021-11-12] MEDS ORDERED: Isosorbide Mononitrate 20 MG TAB PO SCH (12:30)
[2021-11-12] MEDS ORDERED: hydrALAZINE 25 MG TAB PO SCH ×2 (12:30→21:00)
[2021-11-12 15:59] VITALS: BP 161/62; TEMP 98.4
== END 2021-11-12 18:13 | disposition home or self-care (01) ==
LOC: ERS 12:03 → 2SW 14:30
PROVIDERS: ADMIT Internal Medicine; ATTEND Internal Medicine
DX: R55 Syncope and collapse (principal); I16.0 Hypertensive urgency; I13.10 Hypertensive heart and chronic kidney disease without heart failure, with stage 1 through stage 4 chronic kidney disease, or unspecified chronic kidney disease; N18.9 Chronic kidney disease, unspecified; D63.1 Anemia in chronic kidney disease; I25.10 Atherosclerotic heart disease of native coronary artery without angina pectoris; I69.398 Other sequelae of cerebral infarction; H53.8 Other visual disturbances; E78.5 Hyperlipidemia, unspecified; I08.0 Rheumatic disorders of both mitral and aortic valves; I45.10 Unspecified right bundle-branch block; S00.03XA Contusion of scalp, initial encounter; I65.23 Occlusion and stenosis of bilateral carotid arteries; M47.812 Spondylosis without myelopathy or radiculopathy, cervical region; M25.78 Osteophyte, vertebrae; M48.02 Spinal stenosis, cervical region; M43.12 Spondylolisthesis, cervical region; Z85.46 Personal history of malignant neoplasm of prostate; Z79.02 Long term (current) use of antithrombotics/antiplatelets; Z79.899 Other long term (current) drug therapy; Z88.5 Allergy status to narcotic agent; Z88.6 Allergy status to analgesic agent; Z95.1 Presence of aortocoronary bypass graft; Z95.828 Presence of other vascular implants and grafts; W22.8XXA Striking against or struck by other objects, initial encounter
CPT/HCPCS: 70450; 71045; 72125; 80048; 81003; 82550; 83690; 83735; 83880; 84484 ×2; 85025; 85610; 85730; 93005; 93306; 93880; 96374; 97116; 97139 ×3; 99285; G0378 ×3; 36415; 80053; 84443

== ENCOUNTER 2022-02-18 20:37 | Inpatient (IN) | payer MEDICARE, BC ==
[2022-02-18 21:17] LABS: Bacteria/HPF None Seen HPF (None Seen); Bilirubin Negative (Negative); Blood, Urine Negative (Negative); Clarity Clear (Clear); Glucose, Urine (Dipstick) Normal (Negative); Ketone, Urine Negative (Negative); Leukocyte Negative Leu/uL (Negative); Nitrite Negative (Negative); Protein, Urine (Dipstick) 70 mg/dL (Neg-Trace); RBC/HPF 0-3 HPF (0-3); Specific Gravity, Urine 1.013 (1.002-1.036); Squamous Epithelial 0-3 HPF (0-3); Urobilinogen Normal mg/dL (Less than 2); WBC/HPF 0-3 HPF (0-3); pH, Urine 6.5 (5.0-9.0)
[2022-02-18 21:38] LABS: #Eosinphils 0.3 thou/uL (0.0-0.7); #Lymphocytes 1.2 thou/uL (1.20-3.40); #Monocytes 0.7 thou/uL (0.11-0.59); #Neutrophils 6.5 thou/uL (1.40-6.50); %Basophils 0.1 % (0.0-1.0); %Eosinophils 3.2 % (0.0-10.0); %Lymphocytes 14.1 % (21.0-51.0); %Monocytes 8.2 % (0.0-10.0); %Neutrophils 74.4 % (42.0-75.0); Hemoglobin 11.4 g/dL (14.0-18.0); Mean Corpuscular HGB CONC 33.4 g/dL (32.0-36.0); Mean Corpuscular Hemoglobin 29.7 pg (27.0-31.0); Mean Corpuscular Volume 88.9 fL (78.0-98.0); Mean Platelet Volume 9.5 fL (7.4-10.4); Platelet Count 156 thou/uL (130-400); RBC Distribution Width 12.7 % (11.5-14.5); Red Blood Cell (RBC) Count 3.84 mill/uL (4.70-6.10); White Blood Cell (WBC) Count 8.7 thou/uL (4.8-10.8)
[2022-02-18] MEDS ORDERED: Ondansetron PF 4 MG/2 ML Vial ONE (21:46)
[2022-02-18] MEDS ORDERED: Morphine 4 MG/ML VIAL ONE (21:46)
[2022-02-18 22:00] LABS: ALT (SGPT) Less than 7 U/L (8-55); AST (SGOT) 12 U/L (5-34); Albumin 4.7 g/dL (3.4-4.8); Alkaline Phosphatase 60 U/L (40-110); Anion Gap 18 mmol/L (10-20); BUN (Urea Nitrogen) 43 mg/dL (8.4-25.7); Bilirubin, Total 0.7 mg/dL (0.2-1.2); Calc. Creatinine Clearance 0 mL/min (70-130); Calcium 9.5 mg/dL (7.8-10.44); Carbon Dioxide 19 mmol/L (23-31); Chloride 106 mmol/L (98-107); Globulin 3.6 g/dL (2.4-3.5); Glucose 118 mg/dL (83-110); Lipase 30 U/L (8-78); Protein, Total 8.3 g/dL (5.8-8.1); Sodium 139 mmol/L (136-145)
[2022-02-19] MEDS ORDERED: Acetaminophen 650 MG Suppository PR PRN (00:10)
[2022-02-19] MEDS ORDERED: Acetaminophen 325 MG TAB PO PRN (00:10)
[2022-02-19] MEDS ORDERED: Ondansetron PF 4 MG/2 ML Vial IVP PRN (00:10)
[2022-02-19] MEDS ORDERED: Chloraseptic Spray 180 ml Bottle PO PRN (00:13)
[2022-02-19] MEDS ORDERED: Electrolyte Replacement Protocol 1 EACH FS SCH (00:15)
[2022-02-19] MEDS ORDERED: Labetalol HCl 100 MG/20 ML VIAL SLOW IVP PRN (00:33)
[2022-02-19] MEDS ORDERED: MUCINEX INSTASOOTHE SPRY (115 ML BOT) PO PRN (00:45)
[2022-02-19] MEDS ORDERED: Morphine 4 MG/ML VIAL SLOW IVP PRN (00:53)
[2022-02-19] MEDS: Sodium Chloride 0.9% 1,000 ML IV SCH ×2 (02:22→12:00)
[2022-02-19 03:11] LABS: SARS-CoV-2 NAA Rapid Test Not Detected (NotDetected)
[2022-02-19 05:37] LABS: #Eosinphils 0.2 thou/uL (0.0-0.7); #Lymphocytes 0.8 thou/uL (1.20-3.40); #Monocytes 0.7 thou/uL (0.11-0.59); %Basophils 0.3 % (0.0-1.0); %Eosinophils 3.8 % (0.0-10.0); %Lymphocytes 14.6 % (21.0-51.0); %Monocytes 11.5 % (0.0-10.0); %Neutrophils 69.8 % (42.0-75.0); Hemoglobin 10.7 g/dL (14.0-18.0); Mean Corpuscular HGB CONC 32.4 g/dL (32.0-36.0); Mean Corpuscular Hemoglobin 29.2 pg (27.0-31.0); Mean Corpuscular Volume 90.2 fL (78.0-98.0); Mean Platelet Volume 9.5 fL (7.4-10.4); Platelet Count 153 thou/uL (130-400); RBC Distribution Width 12.8 % (11.5-14.5); Red Blood Cell (RBC) Count 3.65 mill/uL (4.70-6.10); White Blood Cell (WBC) Count 5.7 thou/uL (4.8-10.8)
[2022-02-19 05:54] LABS: Phosphorus 4.9 mg/dL (2.3-4.7)
[2022-02-19 05:58] LABS: Anion Gap 14 mmol/L (10-20); BUN (Urea Nitrogen) 39 mg/dL (8.4-25.7); Calc. Creatinine Clearance 21 mL/min (70-130); Calcium 8.8 mg/dL (7.8-10.44); Carbon Dioxide 23 mmol/L (23-31); Chloride 109 mmol/L (98-107); Glucose 112 mg/dL (83-110); Magnesium 2.1 mg/dL (1.6-2.6); Potassium 4.6 mmol/L (3.5-5.1); Sodium 141 mmol/L (136-145)
[2022-02-19] MEDS ORDERED: Pantoprazole 40 MG VIAL ONE (07:39)
[2022-02-19] MEDS ORDERED: Enoxaparin Sodium 30 MG/0.3 ML SYRINGE ONE (07:39)
[2022-02-19] MEDS ORDERED: Morphine 4 MG/ML VIAL ONE (07:39)
[2022-02-19] MEDS ORDERED: hydrALAZINE 20 MG/ML VIAL ONE ×2 (07:43→07:48)
[2022-02-19] MEDS: Enoxaparin Sodium 30 MG/0.3 ML SYRINGE SC SCH (07:58)
[2022-02-19] MEDS: hydrALAZINE 20 MG/ML VIAL SLOW IVP PRN ×2 (07:59→18:16)
[2022-02-19] MEDS: Pantoprazole 40 MG VIAL IVP SCH ×2 (07:59→19:49)
[2022-02-19] MEDS ORDERED: Labetalol HCl 100 MG/20 ML VIAL ONE (10:05)
[2022-02-19] MEDS ORDERED: Ondansetron PF 4 MG/2 ML Vial ONE (10:05)
[2022-02-19] MEDS ORDERED: HYDROmorphone 0.5 MG/0.5 ML SYRINGE SLOW IVP SCH (10:30)
[2022-02-19] MEDS ORDERED: HYDROmorphone 0.5 MG/0.5 ML SYRINGE ONE (11:47)
[2022-02-19] MEDS ORDERED: FLU VACC QS2021-22(65YR UP)/PF 240 MCG/0.7 ML SYRINGE IM ONE (17:15)
[2022-02-19] MEDS: Metoclopramide HCl 10 MG/2 ML VIAL IVP SCH (18:09)
[2022-02-20] MEDS: Metoclopramide HCl 10 MG/2 ML VIAL IVP SCH ×3 (02:48→17:29)
[2022-02-20 06:20] LABS: #Eosinphils 0.2 thou/uL (0.0-0.7); #Lymphocytes 1.2 thou/uL (1.20-3.40); #Monocytes 0.7 thou/uL (0.11-0.59); #Neutrophils 3.7 thou/uL (1.40-6.50); %Basophils 0.1 % (0.0-1.0); %Eosinophils 3.9 % (0.0-10.0); %Lymphocytes 19.8 % (21.0-51.0); %Neutrophils 64.2 % (42.0-75.0); Mean Corpuscular Hemoglobin 30.3 pg (27.0-31.0); Mean Corpuscular Volume 91.9 fL (78.0-98.0); Mean Platelet Volume 9.5 fL (7.4-10.4); Platelet Count 133 thou/uL (130-400); RBC Distribution Width 12.6 % (11.5-14.5); Red Blood Cell (RBC) Count 3.62 mill/uL (4.70-6.10); White Blood Cell (WBC) Count 5.8 thou/uL (4.8-10.8)
[2022-02-20 06:46] LABS: Anion Gap 14 mmol/L (10-20); BUN (Urea Nitrogen) 31 mg/dL (8.4-25.7); Calc. Creatinine Clearance 22 mL/min (70-130); Calcium 8.3 mg/dL (7.8-10.44); Carbon Dioxide 19 mmol/L (23-31); Chloride 112 mmol/L (98-107); Glucose 94 mg/dL (83-110); Sodium 141 mmol/L (136-145)
[2022-02-20] MEDS: Enoxaparin Sodium 30 MG/0.3 ML SYRINGE SC SCH (08:58)
[2022-02-20] MEDS: Pantoprazole 40 MG VIAL IVP SCH ×2 (08:59→21:23)
[2022-02-20] MEDS: hydrALAZINE 20 MG/ML VIAL SLOW IVP PRN (10:40)
[2022-02-20] MEDS ORDERED: MD-Gastroview 120 ML BOT ONE (12:15)
[2022-02-20] MEDS: hydrALAZINE 25 MG TAB PO SCH (17:29)
[2022-02-20] MEDS: Carvedilol 3.125 MG TAB PO SCH (17:29)
[2022-02-20] MEDS: Isosorbide Dinitrate 5 MG TAB PO SCH (21:22)
[2022-02-20] MEDS: cloNIDine 0.1 MG TAB PO SCH (21:22)
[2022-02-20] MEDS: Minoxidil 2.5 MG TAB PO SCH (21:22)
[2022-02-21] MEDS: Metoclopramide HCl 10 MG/2 ML VIAL IVP SCH ×2 (02:21→12:55)
[2022-02-21 06:19] LABS: #Eosinphils 0.3 thou/uL (0.0-0.7); #Monocytes 0.6 thou/uL (0.11-0.59); #Neutrophils 3.6 thou/uL (1.40-6.50); %Basophils 0.4 % (0.0-1.0); %Eosinophils 5.2 % (0.0-10.0); %Monocytes 10.3 % (0.0-10.0); %Neutrophils 65.1 % (42.0-75.0); Hemoglobin 9.4 g/dL (14.0-18.0); Mean Corpuscular HGB CONC 32.3 g/dL (32.0-36.0); Mean Corpuscular Hemoglobin 29.2 pg (27.0-31.0); Mean Corpuscular Volume 90.4 fL (78.0-98.0); Mean Platelet Volume 9.1 fL (7.4-10.4); Platelet Count 131 thou/uL (130-400); RBC Distribution Width 12.5 % (11.5-14.5); Red Blood Cell (RBC) Count 3.22 mill/uL (4.70-6.10); White Blood Cell (WBC) Count 5.5 thou/uL (4.8-10.8)
[2022-02-21 06:38] LABS: Anion Gap 12 mmol/L (10-20); BUN (Urea Nitrogen) 29 mg/dL (8.4-25.7); Calc. Creatinine Clearance 19 mL/min (70-130); Calcium 8.1 mg/dL (7.8-10.44); Carbon Dioxide 23 mmol/L (23-31); Chloride 109 mmol/L (98-107); Glucose 102 mg/dL (83-110); Potassium 3.7 mmol/L (3.5-5.1); Sodium 140 mmol/L (136-145)
[2022-02-21] MEDS ORDERED: Clopidogrel Bisulfate 75 MG TAB PO SCH (09:00)
[2022-02-21] MEDS: Isosorbide Dinitrate 5 MG TAB PO SCH (09:43)
[2022-02-21] MEDS: Carvedilol 3.125 MG TAB PO SCH (09:43)
[2022-02-21] MEDS: Pantoprazole 40 MG VIAL IVP SCH (09:52)
[2022-02-21] MEDS: Enoxaparin Sodium 30 MG/0.3 ML SYRINGE SC SCH (09:52)
[2022-02-21 12:34] VITALS: BP 93/54; TEMP 98.3
[2022-02-21] MEDS: hydrALAZINE 25 MG TAB PO SCH (12:54)
[2022-02-21] MEDS: cloNIDine 0.1 MG TAB PO SCH (12:54)
[2022-02-21] MEDS: Minoxidil 2.5 MG TAB PO SCH (12:55)
== END 2022-02-21 13:39 | disposition home or self-care (01) | DRG 389 ==
LOC: ERS 20:37 → ERHOLD 23:22 → OBSVTOIN 02-19 11:51 → T4-A 02-19 12:41
PROVIDERS: ADMIT Student in an Organized Health Care Education/Training Program; ATTEND Emergency Medicine
PROC: 0D9670Z Drainage of Stomach with Drainage Device, Via Natural or Artificial Opening (ICD-10-PCS; principal; 2022-02-19)
DX: K56.600 Partial intestinal obstruction, unspecified as to cause (principal); N18.4 Chronic kidney disease, stage 4 (severe); Z20.822 Contact with and (suspected) exposure to COVID-19; E78.5 Hyperlipidemia, unspecified; I25.10 Atherosclerotic heart disease of native coronary artery without angina pectoris; I12.9 Hypertensive chronic kidney disease with stage 1 through stage 4 chronic kidney disease, or unspecified chronic kidney disease; D63.1 Anemia in chronic kidney disease; I45.10 Unspecified right bundle-branch block; F41.9 Anxiety disorder, unspecified; F32.A Depression, unspecified; Z86.718 Personal history of other venous thrombosis and embolism; Z86.73 Personal history of transient ischemic attack (TIA), and cerebral infarction without residual deficits; Z85.46 Personal history of malignant neoplasm of prostate; Z85.820 Personal history of malignant melanoma of skin; Z88.6 Allergy status to analgesic agent; Z88.5 Allergy status to narcotic agent; Z79.899 Other long term (current) drug therapy; Z79.02 Long term (current) use of antithrombotics/antiplatelets; Z90.49 Acquired absence of other specified parts of digestive tract; Z95.1 Presence of aortocoronary bypass graft; Z92.3 Personal history of irradiation
CPT/HCPCS: 36415; 71045; 74176; 74250; 80048; 80053; 81003; 81015; 83690; 83735; 84100; 85025; 93005; 96372; 96374; 96375; 96376; C9113; G0378; J0360; J1170; J1650; J2270; J2405; J2765; J7050; Q9963; U0002

== ENCOUNTER 2022-05-20 09:46 | Outpatient (CLI) | payer MEDICARE, BC | END 2022-05-20 09:47 | disposition home or self-care (01) | LOC: DTY/OP 09:46 | PROVIDERS: ATTEND Family Medicine | DX: N18.4 Chronic kidney disease, stage 4 (severe) (principal) | CPT/HCPCS: 97802 ==

== ENCOUNTER 2025-01-04 14:21 | Emergency (ER) | payer MEDICARE ==
[2025-01-04 16:36] LABS: #Basophils 0.04 10x3/uL (0.0-0.2); %Basophils 0.5 % (0.0-1.0); %Lymphocytes 18.8 % (21.0-51.0); %Monocytes 12.1 % (0.0-10.0); %Neutrophils 64.2 % (42.0-75.0); Hemoglobin 9.8 g/dL (14.0-18.0); Mean Corpuscular HGB CONC 32.7 g/dL (32.0-36.0); Mean Corpuscular Hemoglobin 27.8 pg (27.0-31.0); Mean Corpuscular Volume 85.2 fL (78.0-98.0); Mean Platelet Volume 10.8 fL (7.4-10.4); Platelet Count 234 10x3/uL (130-400); RBC Distribution Width 15.1 % (11.5-14.5); Red Blood Cell (RBC) Count 3.52 mill/uL (4.70-6.10)
[2025-01-04 16:58] LABS: ALT (SGPT) 13 U/L (Less than 45); AST (SGOT) 29 U/L (11-34); Albumin 3.1 g/dL (3.1-4.5); Alkaline Phosphatase 85 U/L (40-110); Anion Gap 14 mmol/L (10-20); BUN (Urea Nitrogen) 57 mg/dL (8.4-25.7); Bilirubin, Total 0.5 mg/dL (0.3-1.2); Calc. Creatinine Clearance 0 mL/min (70-130); Calcium 8.8 mg/dL (7.8-10.44); Carbon Dioxide 17 mmol/L (23-31); Chloride 110 mmol/L (98-107); Estimated GFR 18; Globulin 4.5 g/dL (2.4-3.5); Glucose 87 mg/dL (83-110); Potassium 4.3 mmol/L (3.5-5.1); Protein, Total 7.6 g/dL (5.8-8.1); Sodium 137 mmol/L (136-145)
[2025-01-04 17:33] LABS: Bilirubin Negative (Negative); Blood, Urine Negative (Negative); CAUTI Indications for Culture Pelvic or flank pain; Clarity Clear (Clear); Glucose, Urine (Dipstick) Normal (Negative); Ketone, Urine Negative (Negative); Leukocyte Negative Leu/uL (Negative); Nitrite Negative (Negative); Protein, Urine (Dipstick) 70 mg/dL (Neg-Trace); RBC/HPF 0-3 HPF (0-3); Specific Gravity, Urine 1.018 (1.002-1.036); Squamous Epithelial 0-3 HPF (0-3); Urobilinogen Normal mg/dL (Less than 2); WBC/HPF 0-3 HPF (0-3); pH, Urine 5.5 (5.0-9.0)
[2025-01-04 17:34] LABS: Bacteria/HPF Rare-Few HPF (None Seen)
[2025-01-04 17:35] LABS: Urine Culture Reflex No No
== END 2025-01-04 20:32 | disposition home or self-care (01) ==
LOC: ERS 14:21
DX: M54.6 Pain in thoracic spine (principal); M79.605 Pain in left leg; M79.604 Pain in right leg; R53.1 Weakness; I10 Essential (primary) hypertension; Z87.891 Personal history of nicotine dependence
CPT/HCPCS: 36415; 70450; 72125; 72128; 72131; 80053; 81001; 85025